=== PATIENT | female | born 1945 | race Two or more races ===

== ENCOUNTER 2021-06-02 08:44 | Outpatient (REF) | payer MEDICARE, MEDICAID, SELFPAY ==
[2021-06-02 11:38] LABS: Appearance Urine HAZY; Color Urine YELLOW; Glucose Urine UA NEG (NEG); Leukocyte Esterase Urine TRACE (NEG); Nitrite Urine POS (NEG); PH 5.5 (5.0-8.0); Specific Gravity - Urine 1.025 (1.005-1.025); Urine Blood NEG (NEG); Urine Ketones NEG (NEG); Urine Protein NEG (NEG-TRACE)
[2021-06-02 11:42] LABS: Hematocrit 37.4 % (37.0-47.0); Hemoglobin 11.9 g/dl (12.0-16.0); Mean Corpuscular HGB Conc 31.8 g/dl (31.0-35.0); Mean Corpuscular Hemoglobin 28.2 pg (27.0-33.0); Mean Corpuscular Volume 88.6 fL (80.0-98.0); Mean Platelet Volume 10.8 fL (9.4-12.3); Platelet Count 206 X10*3/uL (160-400); Red Blood Count 4.22 X10*6/uL (4.20-5.50); Red Cell Distribution Width 13.2 % (11.0-16.0); White Blood Count 4.2 X10*3/uL (4.8-10.8)
[2021-06-02 11:45] LABS: Estimated Average Glucose 140 mg/dL; Hemoglobin A1C 151.0093 umol/L; Hemoglobin A1c % 6.5 %
[2021-06-02 12:05] LABS: Bacteria Urine 1+ /LPF; Mucus Urine 2+ /LPF; RBC Urine 0 /HPF (0); Squamous Epithelial Cell Urine 2+ /LPF
[2021-06-02 12:09] LABS: Alanine Aminotransferase 10 U/L (0-31); Albumin Level 3.5 g/dL (3.5-5.0); Alkaline Phosphatase 63 U/L (39-117); Anion Gap 10 (12-20); Aspartate Amino Transferase 13 U/L (5-31); Bilirubin Total 0.4 mg/dL (0.0-1.0); Blood Urea Nitrogen 22 mg/dL (9-16); Calcium 9.1 mg/dL (8.4-10.2); Carbon Dioxide 27 mmol/L (22-29); Chloride 110 mmol/L (96-108); Cholesterol 150 mg/dL; Estimated Glomerular Filt Rate > 60; Glucose Fasting 101 mg/dL (60-99); HDL Cholesterol 38 mg/dL; LDL Cholesterol Calculated 99 mg/dl; Potassium 4.6 mmol/L (3.3-5.1); Sodium 142 mmol/L (135-145); Total Protein 7.2 g/dL (6.5-8.0); Triglycerides 65 mg/dL
[2021-06-02 12:13] LABS: TSH reflex Free T4 4.04 uIU/mL (0.32-4.0)
[2021-06-02 12:35] LABS: Creatinine Urine 105.33 mg/dL; Microalbum/Creatinine Ratio Ur 7.5 ug/mg cr
[2021-06-02 13:17] LABS: Free T4 (Free Thyroxine) 0.64 ng/dL (0.71-1.85)
== END 2021-06-02 08:45 | disposition home or self-care (01) ==
LOC: HO.HMGCLDS 08:44
PROVIDERS: PCP Internal Medicine; Visit Provider Internal Medicine
DX: E11.9 Type 2 diabetes mellitus without complications (principal); I10 Essential (primary) hypertension
CPT/HCPCS: 36415; 80053; 80061; 81001; 82043; 83036; 84439; 84443; 85027

== ENCOUNTER 2021-06-11 13:11 | Outpatient (REF) | payer MEDICARE, MEDICAID, SELFPAY ==
[2021-06-11 14:09] LABS: Appearance Urine HAZY; Color Urine YELLOW; Glucose Urine UA NEG (NEG); Leukocyte Esterase Urine 1+ (NEG); Nitrite Urine NEG (NEG); PH 5.5 (5.0-8.0); Specific Gravity - Urine 1.025 (1.005-1.025); Urine Blood NEG (NEG); Urine Ketones NEG (NEG); Urine Protein NEG (NEG-TRACE)
[2021-06-11 14:29] LABS: Bacteria Urine TRACE /LPF; Squamous Epithelial Cell Urine 2+ /LPF
== END 2021-06-11 13:12 | disposition home or self-care (01) ==
LOC: HO.HMGCLDS 13:11
PROVIDERS: Visit Provider Internal Medicine
DX: R82.71 Bacteriuria (principal)
CPT/HCPCS: 81001; 87086

== ENCOUNTER 2021-09-29 11:55 | Outpatient (REF) | payer MEDICARE, MEDICAID, SELFPAY ==
[2021-09-29 14:48] LABS: TSH reflex Free T4 3.27 uIU/mL (0.32-4.0)
== END 2021-09-29 11:56 | disposition home or self-care (01) ==
LOC: HO.HMGCLDS 11:55
PROVIDERS: PCP Internal Medicine; Visit Provider Internal Medicine
DX: E03.9 Hypothyroidism, unspecified (principal); R82.71 Bacteriuria
CPT/HCPCS: 36415; 84443

== ENCOUNTER 2021-11-06 09:21 | Outpatient (REF) | payer MEDICARE, MEDICAID, SELFPAY ==
[2021-11-06 11:13] LABS: MANUAL DIFF FLAG NO
[2021-11-06 11:22] LABS: Basophils Percent Auto 0.5 % (0-2); Eosinophils Absolute Auto 0.3 X10*3/uL (0.0-0.4); Eosinophils Percent Auto 6.5 % (0-4); Hematocrit 39.9 % (37.0-47.0); Hemoglobin 12.7 g/dl (12.0-16.0); Imm Gran Abs Auto 0.01 X10*3/uL (0.00-0.03); Imm Gran Pct Auto 0.3 % (0.0-0.4); Lymphocytes Absolute Auto 1.3 X10*3/uL (1.2-4.9); Lymphocytes Percent Auto 33.5 % (20-40); Mean Corpuscular HGB Conc 31.8 g/dl (31.0-35.0); Mean Corpuscular Hemoglobin 27.5 pg (27.0-33.0); Mean Corpuscular Volume 86.4 fL (80.0-98.0); Mean Platelet Volume 10.4 fL (9.4-12.3); Monocytes Absolute Auto 0.4 X10*3/uL (0.1-1.2); Monocytes Percent Auto 8.8 % (2-11); Neutrophils Percent Auto 50.4 % (45-73); Platelet Count 237 X10*3/uL (160-400); Red Blood Count 4.62 X10*6/uL (4.20-5.50); Red Cell Distribution Width 13.2 % (11.0-16.0)
[2021-11-06 11:30] LABS: Estimated Average Glucose 140 mg/dL; Hemoglobin A1c % 6.5 %
[2021-11-06 11:34] LABS: Alanine Aminotransferase 14 U/L (0-31); Albumin Level 3.9 g/dL (3.5-5.0); Alkaline Phosphatase 64 U/L (39-117); Anion Gap 15 (12-20); Aspartate Amino Transferase 15 U/L (5-31); Bilirubin Total 0.5 mg/dL (0.0-1.0); Blood Urea Nitrogen 22 mg/dL (9-16); Calcium 9.5 mg/dL (8.4-10.2); Carbon Dioxide 26 mmol/L (22-29); Chloride 103 mmol/L (96-108); Cholesterol 173 mg/dL; Estimated Glomerular Filt Rate 52; Glucose Fasting 105 mg/dL (60-99); HDL Cholesterol 39 mg/dL; LDL Cholesterol Calculated 119 mg/dl; Potassium 4.9 mmol/L (3.3-5.1); Sodium 139 mmol/L (135-145); Total Protein 7.6 g/dL (6.5-8.0); Triglycerides 76 mg/dL
[2021-11-06 11:58] LABS: TSH reflex Free T4 4.39 uIU/mL (0.32-4.0)
[2021-11-06 11:59] LABS: Creatinine Urine 137.01 mg/dL; Microalbum/Creatinine Ratio Ur 13.8 ug/mg cr
[2021-11-06 12:37] LABS: Free T4 (Free Thyroxine) 0.63 ng/dL (0.71-1.85)
== END 2021-11-06 09:22 | disposition home or self-care (01) ==
LOC: HO.HMGCLDS 09:21
PROVIDERS: PCP Internal Medicine; Visit Provider Internal Medicine
DX: E11.9 Type 2 diabetes mellitus without complications (principal); I10 Essential (primary) hypertension; E03.9 Hypothyroidism, unspecified
CPT/HCPCS: 36415; 80053; 80061; 82043; 83036; 84439; 84443; 85025

== ENCOUNTER 2022-01-11 14:21 | Outpatient (REF) | payer MEDICARE, MEDICAID, SELFPAY ==
[2022-01-11 16:50] LABS: TSH reflex Free T4 0.44 uIU/mL (0.32-4.0)
== END 2022-01-11 14:22 | disposition home or self-care (01) ==
LOC: HO.HMGCLDS 14:21
PROVIDERS: PCP Internal Medicine; Visit Provider Internal Medicine
DX: E03.9 Hypothyroidism, unspecified (principal)
CPT/HCPCS: 36415; 84443

== ENCOUNTER 2022-03-24 14:36 | Emergency (ER) | payer MEDICARE, OTHER, SELFPAY ==
--- NOTE | ~2022-03-24 | XR_ITS ---
EXAMINATION: XR CHEST CLINICAL INFORMATION: Shortness of breath COMPARISON: None TECHNIQUE: Frontal view of the chest was obtained. FINDINGS: No significant abnormality is noted involving the heart, lungs, mediastinum, bony thorax or soft tissues. Degenerative changes of the spine. XR/XR chest 1V IMPRESSION: Unremarkable examination.
--- NOTE | 2022-03-24 14:42 | ECG_ITS ---
Test Reason : AFIB Blood Pressure : / mmHG Vent. Rate : 099 BPM Atrial Rate : 000 BPM P-R Int : 000 ms QRS Dur : 084 ms QT Int : 362 ms P-R-T Axes : 000 -21 -12 degrees QTc Int : 464 ms Atrial fibrillation Nonspecific T wave abnormality Abnormal ECG No previous ECGs available Referred By: Anna Monroy Electronically Signed By:FIDENCIO SALTER MD
[2022-03-24 14:50] VITALS: BP 109/68; PULSE 96; RESP 22; TEMP 36.9; BMI 37.0
[2022-03-24 15:18] LABS: MANUAL DIFF FLAG NO
[2022-03-24 15:19] VITALS: PULSE 104; RESP 14; O2SAT 94
[2022-03-24 15:19] LABS: Basophils Percent Auto 0.5 % (0-2); Eosinophils Absolute Auto 0.9 X10*3/uL (0.0-0.4); Eosinophils Percent Auto 14.5 % (0-4); Hematocrit 40.8 % (37.0-47.0); Hemoglobin 13.1 g/dl (12.0-16.0); Imm Gran Abs Auto 0.01 X10*3/uL (0.00-0.03); Imm Gran Pct Auto 0.2 % (0.0-0.4); Lymphocytes Absolute Auto 1.5 X10*3/uL (1.2-4.9); Lymphocytes Percent Auto 25.5 % (20-40); Mean Corpuscular HGB Conc 32.1 g/dl (31.0-35.0); Mean Corpuscular Hemoglobin 27.6 pg (27.0-33.0); Mean Corpuscular Volume 86.1 fL (80.0-98.0); Mean Platelet Volume 9.7 fL (9.4-12.3); Monocytes Absolute Auto 0.6 X10*3/uL (0.1-1.2); Monocytes Percent Auto 9.3 % (2-11); Platelet Count 194 X10*3/uL (160-400); Red Blood Count 4.74 X10*6/uL (4.20-5.50); Red Cell Distribution Width 13.8 % (11.0-16.0); White Blood Count 6.1 X10*3/uL (4.8-10.8)
--- NOTE | 2022-03-24 15:21 | PC.NURSE ---
Alert and oriented, respirations even and unlabored. Recent pneumonia, finished taking antibiotics with little to no relief. Followed up with PCP today, ekg shows new afib. Pt on director of cardiac rehabilitation showing afib in the 90's and 100's. Pt denies any chest pain. IV established, labs drawn and sent. Pt northern irish speaking, family at bedside assisting with interpretation.
[2022-03-24 15:25] LABS: INTERNATIONAL NORM RATIO 1.1 (0.9-1.1); Prothrombin Time 12.7 SEC (10.0-13.1)
[2022-03-24 15:42] LABS: B Type Natriuretic Peptide 98 pg/mL (<100)
[2022-03-24 15:43] LABS: Alanine Aminotransferase 12 U/L (0-31); Albumin Level 3.8 g/dL (3.5-5.0); Alkaline Phosphatase 70 U/L (39-117); Anion Gap 13 (12-20); Aspartate Amino Transferase 20 U/L (5-31); Bilirubin Total 0.3 mg/dL (0.0-1.0); Blood Urea Nitrogen 21 mg/dL (9-16); COVID-19 Test Negative (Negative); Calcium 9.3 mg/dL (8.4-10.2); Carbon Dioxide 25 mmol/L (22-29); Chloride 106 mmol/L (96-108); Creatinine Clr Calc Pharmacy 64.7; Estimated Glomerular Filt Rate > 60; Glucose Random 74 mg/dL (60-115); IDNOW Serial# 16C4AD1C; IDNOW Serial# 9DB6401D; Influenza A Negative (Negative); Influenza B2 Negative (Negative); Potassium 4.3 mmol/L (3.3-5.1); Sodium 140 mmol/L (135-145); Total Protein 7.5 g/dL (6.5-8.0)
--- NOTE | 2022-03-24 15:43 | ED_ITS ---
HPI - Arrhythmia/Palpitations General Chief Complaint: Arrhythmia/Palpitations <JUDIE Galarza - Last Filed: 03/24/22 18:33> Stated Complaint: sent by doctor, SOB, Afib <JUDIE Galarza - Last Filed: 03/24/22 18:33> Time Seen by Provider: 03/24/22 14:42 <JUDIE Galarza - Last Filed: 03/24/22 18:33> Source: patient <JUDIE Galarza - Last Filed: 03/24/22 18:33> Mode of arrival: ambulatory <JUDIE Galarza - Last Filed: 03/24/22 18:33> History of Present Illness HPI narrative: 76-year-old female with a past medical history of diabetes, hypertension, hypothyroid, recent pneumonia treated with antibiotics outpatient presenting to the ED sent in by PCP for new onset AFib. Patient presented for follow-up appointment complaining of continued dyspnea, productive cough and wheeze when noted to be in AFib on EKG in the office. Patient reports SOB. denies CP, pedal edema, history of clots, recent travel, sick contacts, abdominal pain, nausea/vomiting. <JUDIE Galarza - Last Filed: 03/24/22 18:33> MD complaint: atrial fibrillation <JUDIE Galarza - Last Filed: 03/24/22 18:33> Onset (ago): unknown <JUDIE Galarza - Last Filed: 03/24/22 18:33> Related Data Home Medications: Previous Rx's Medication Instructions Recorded amlodipine 5 mg tablet 5 mg PO DAILY #90 tabs 06/01/21 glipizide 5 mg tablet 2.5 mg PO DAILY #90 tabs 06/01/21 lisinopril 10 mg tablet 10 mg PO DAILY #90 tabs 06/01/21 albuterol sulfate 90 mcg/actuation 2 puff inhalation Q6H PRN 11/02/21 aerosol inhaler shortness of breath or wheezing #8.5 grams levothyroxine 50 mcg tablet 50 mcg PO DAILY #90 tabs 11/10/21 apixaban 5 mg tablet (Eliquis) 5 mg PO BID 30 days #60 tabs 03/24/22 diltiazem HCl 120 mg 120 mg PO DAILY #30 caps 03/24/22 capsule,extended release 24 hr (Cardizem CD) levalbuterol tartrate 45 2 puff inhalation Q4-6H PRN 03/24/22 mcg/actuation aerosol inhaler shortness of breath or wheezing (Xopenex HFA) #15 grams prednisone 20 mg tablet 40 mg PO DAILY 5 days #10 tabs 03/24/22 <JUDIE Galarza Last Filed: 03/24/22 18:33> Allergies/Adverse Reactions: Allergies Allergy/AdvReac Type Severity Reaction Status Date / Time No Known Allergies Allergy Verified 03/24/22 12:51 <JUDIE Galarza Last Filed: 03/24/22 18:33> Review of Systems Review of Systems: Constitutional: No Fever, No Chills, No Fatigue, No Malaise ENT/Mouth: No Ear Pain, No Nasal Congestion, No Sinus Pain, No Hoarseness, No sore throat, No Rhinorrhea, No Swallowing Difficulty Eyes: No Eye Pain, No Swelling, No Redness, No Vision Changes Cardiovascular: No Chest Pain, + SOB, + Dyspnea on Exertion, No Orthopnea, No Edema, No Palpitations Respiratory: + Cough, No Sputum, + Wheezing, No Dyspnea Gastrointestinal: No Nausea, No Vomiting, No Diarrhea, No Constipation, No Abdominal pain, No Hematochezia, No Melena Genitourinary: No Dysuria, No Urinary Frequency, No Hematuria, No Flank Pain, No Urinary Flow Changes, No Hesitancy Musculoskeletal: No joint pain, No Myalgias, No Joint Swelling Skin: No Skin Lesions, No rash Neuro: No Weakness, No Numbness, No Dizziness, No Headache <JUDIE Galarza Last Filed: 03/24/22 18:33> Yes all other systems are reviewed and are negative <JUDIE Galarza Last Filed: 03/24/22 18:33> Constitutional: Constitutional: Reports as per HPI <JUDIE Galarza Last Filed: 03/24/22 18:33> PMFSH Past Medical History Attestation statement: The following information was validated with the patient. <JUDIE Galarza Last Filed: 03/24/22 18:33> Medical History: Medical History Bacteriuria Colonoscopy refused DM type 2 (diabetes mellitus, type 2) HTN (hypertension) Hypothyroidism Mammogram declined <JUDIE Galarza - Last Filed: 03/24/22 18:33> Social History Social History: Social History Housing: House Patient Tobacco Use Status: Never used Tobacco e-Cigarette/Vaping Use: Never Used Advance Directives: No Advance Directives Information Provided: No Current occupational status: retired Cognitive needs: No Hearing needs: No Vision needs: Yes <JUDIE Galarza - Last Filed: 03/24/22 18:33> Physical Exam Vital Signs: Vital Signs: Last Vital Signs Temp 97.8 F 03/24/22 18:43 Pulse 90 03/24/22 18:43 Resp 16 03/24/22 18:43 BP 141/81 H 03/24/22 18:43 Pulse Ox 94 03/24/22 18:43 O2 Del Method 03/24/22 18:43 BMI result Body Mass Index 37.0 <JUDIE Galarza - Last Filed: 03/24/22 18:33> Vital Signs: Last Vital Signs Temp 97.8 F 03/24/22 18:43 Pulse 90 03/24/22 18:43 Resp 16 03/24/22 18:43 BP 141/81 H 03/24/22 18:43 Pulse Ox 94 03/24/22 18:43 O2 Del Method 03/24/22 18:43 BMI result Body Mass Index 37.0 <JUDIE Valente - Last Filed: 03/24/22 19:30> Const: General: cooperative, healthy appearing and no acute distress <JUDIE Galarza - Last Filed: 03/24/22 18:33> Orientation/consciousness: patient oriented x3 <JUDIE Galarza - Last Filed: 03/24/22 18:33> Limitations: no limitations <JUIDE Galarza Last Filed: 03/24/22 18:33> HEENT: Head: Yes normal to inspection and Yes atraumatic <JUDIE Galarza - Last Filed: 03/24/22 18:33> Ears: hearing grossly normal bilaterally <Celina Lucigeorget PA - Last Filed: 03/24/22 18:33> General nose exam: Normal external nose present <Celina Montañot PA - Last Fi led: 03/24/22 18:33> Face and sinus: Yes normal facial exam <Celina Santos PA - Last Filed: 03/24/22 18:33> Eyes: General: appearance normal, both eyes and all related structures <Celina Montañot PA - Last Filed: 03/24/22 18:33> EOM: EOMs intact bilaterally <Celina Poulgeorget PA - Last Filed: 03/24/22 18:33> Neck: Neck: Yes normal visual inspection and Yes no meningeal signs <Celina Montañot PA - Last Filed: 03/24/22 18:33> Resp: Effort & Inspection: normal respiratory effort and no respiratory distress <Celina Santos PA - Last Filed: 03/24/22 18:33> Auscultation: wheezes expiratory wheezes and throughout <Celina Lucigeorget PA - Last Filed: 03/24/22 18:33> Cardio: Rate: regular rate <Celina Poulcarl PA - Last Filed: 03/24/22 18:33> Heart sounds: S1 normal heart sound present and S2 normal heart sound present <Celina Santos PA - Last Filed: 03/24/22 18:33> GI: Inspection: Yes normal to inspection <Celina Santos PA - Last Filed: 03/24/22 18:33> Palpation (GI): Soft to palpation, nontender, no guarding and not rigid <Celina Poulgeorget PA - Last Filed: 03/24/22 18:33> Skin: Rashes: no rashes <Celina Poulgeorget PA - Last Filed: 03/24/22 18:33> Wounds: no wounds <Celina Poulcarl PA - Last Filed: 03/24/22 18:33> Neuro: General: patient oriented x3, tone normal and no meningeal signs <Celina Santos PA - Last Filed: 03/24/22 18:33> Gait exam (Neuro): Normal gait present <JUDIE Galarza - Last Filed: 03/24/22 18:33> Extrem: General: Yes normal to inspection and Yes no pedal edema <JUDIE Hoffmann - Last Filed: 03/24/22 18:33> Course Course Course Narrative: -1739--case discussed with Dr. Mazariegos, cardiology, recommended discharging patient home on Eliquis, 120 or 180 mg daily of Cardizem & switching inhalers to Xopenex -no leukocytosis. Labs otherwise reassuring. Troponin negative. BNP 98. COVID-19 and influenza negative XR chest 1V IMPRESSION: Unremarkable examination. ? >> patient ambulated in the ED with pulse ox maintaining saturation of 93% on room air. -1809--on re-evaluation patient is still with diffuse expiratory wheeze. Additional Xopenex and IV Solu-Medrol ordered. -183--ED care transferred to JUDIE Fink pending re-evaluation. Heart rate now 83 after IV Cardizem <JUDIE Galarza - Last Filed: 03/24/22 18:33> Reevaluation(s) Reevaluation #1: Patient did ambulate around the department still saturating 93% on room air requesting to go home. I did offer hospital admission however patient refuses, she tells me she is not feeling short of breath would like to go home. I did discuss risk versus benefits of staying in the hospital versus going home, she verbalizes understanding, I answered all questions. They did not want an actual sewage screen operator, used for interpretation. Educated patient on diagnosis and treatment plan, answered all question, patient verbalizes understa nding. At this time patient will be discharged home, advised to return with new or worsening symptoms. Educated on worrisome signs and symptoms and when to return. At this time I feel comfortable discharge home. <JUDIE Valente - Last Filed: 03/24/22 19:30> Time: 19:30 <JUDIE Valente Last Filed: 03/24/22 19:30> Medications Administered Discontinued Medications Generic Name Dose Route Start Last Admin Trade Name Freq PRN Reason Stop Dose Admin Apixaban 5 mg 03/24/22 18:05 03/24/22 19:12 Apixaban 5 Mg Tablet PO 03/24/22 18:06 5 mg ONCE ONE Administration Diltiazem HCl 10 mg 03/24/22 17:36 03/24/22 18:03 Diltiazem Hcl 50 Mg/10 Ml Vial IVPUSH 03/24/22 17:37 10 mg STAT STA Administration Levalbuterol HCl 1.25 mg 03/24/22 18:03 03/24/22 18:14 Levalbuterol Hcl 1.25 Mg/0.5 Ml Vial.Neb INHALE 03/24/22 18:04 1.25 mg ONCE ONE Administration Levalbuterol HCl 1.25 mg 03/24/22 18:36 03/24/22 19:06 Levalbuterol Hcl 1.25 Mg/0.5 Ml Vial.Neb INHALE 03/24/22 18:37 Not Given ONCE ONE Methylprednisolone Sodium Succinate 60 mg 03/24/22 18:03 03/24/22 18:06 Methylprednisolone Sod Succ 125 Mg/2 Ml Vial IVPUSH 03/24/22 18:04 60 mg ONCE ONE Administration <JUDIE Galarza - Last Filed: 03/24/22 18:33> Medications Administered Discontinued Medications Generic Name Dose Route Start Last Admin Trade Name Freq PRN Reason Stop Dose Admin Apixaban 5 mg 03/24/22 18:05 03/24/22 19:12 Apixaban 5 Mg Tablet PO 03/24/22 18:06 5 mg ONCE ONE Administration Diltiazem HCl 10 mg 03/24/22 17:36 03/24/22 18:03 Diltiazem Hcl 50 Mg/10 Ml Vial IVPUSH 03/24/22 17:37 10 mg STAT STA Administration Levalbuterol HCl 1.25 mg 03/24/22 18:03 03/24/22 18:14 Levalbuterol Hcl 1.25 Mg/0.5 Ml Vial.Neb INHALE 03/24/22 18:04 1.25 mg ONCE ONE Administration Levalbuterol HCl 1.25 mg 03/24/22 18:36 03/24/22 19:06 Levalbuterol Hcl 1.25 Mg/0.5 Ml Vial.Neb INHALE 03/24/22 18:37 Not Given ONCE ONE Methylprednisolone Sodium Succinate 60 mg 03/24/22 18:03 03/24/22 18:06 Methylprednisolone Sod Succ 125 Mg/2 Ml Vial IVPUSH 03/24/22 18:04 60 mg ONCE ONE Administration <JUDIE Valente - Last Filed: 03/24/22 19:30> Medical Decision Making Medical Decision Making [facility] Narrative: 76-year-old female with a past medical history of diabetes, hypertension, hypothyroid, recent pneumonia treated with antibiotics outpatient presenting to the ED sent in by PCP for new onset AFib. On exam initially tachypneic, diffuse expiratory wheeze noted with coarse cough, no appreciable pedal edema/calf tenderness. No respiratory distress. EKG with AFib with RVR, new onset. Concern for AFib secondary to albuterol/medication vs new onset AFib vs recurrent pneumonia vs viral illness vs bronchitis. Low suspicion for ACS/PE Plan: EKG, labs, CXR, COVID-19/influenza testing, Xopenex, cardiology consult <JUDIE Galarza - Last Filed: 03/24/22 18:33> Differential Diagnosis Differential Diagnoses: The differential diagnosis associated with the presentation includes <JUDIE Galarza - Last Filed: 03/24/22 18:33> As above <JUDIE Galarza - Last Filed: 03/24/22 18:33> Consult Healthcare Provider Management of the patient was discussed with: Citizenship Teacher <JUDIE Galarza - Last Filed: 03/24/22 18:33> Lab Data [facility] Lab Attestation statement: I reviewed the patient's lab results. <JUDIE Galarza - Last Filed: 03/24/22 18:33> Result Diagrams: : 03/24/22 15:09 03/24/22 15:09 <JUDIE Galarza - Last Filed: 03/24/22 18:33> Labs: Lab Results 03/24/22 03/24/22 03/24/22 Range/Units 15:09 15:09 15:09 WBC 6.1 (4.8-10.8) X10*3/uL RBC 4.74 (4.20-5.50) X10*6/uL Hgb 13.1 (12.0-16.0) g/dl Hct 40.8 (37.0-47.0) % MCV 86.1 (80.0-98.0) fL MCH 27.6 (27.0-33.0) pg MCHC 32.1 (31.0-35.0) g/dl RDW 13.8 (11.0-16.0) % Plt Count 194 (160-400) X10*3/uL MPV 9.7 (9.4-12.3) fL Immature Gran % (Auto) 0.2 (0.0-0.4) % Neut % (Auto) 50.0 (45-73) % Lymph % (Auto) 25.5 (20-40) % [place] % (Auto) 9.3 (2-11) % Eos % (Auto) 14.5 H (0-4) % Baso % (Auto) 0.5 (0-2) % Lymph # (Auto) 1.5 (1.2-4.9) X10*3/uL [place] # (Auto) 0.6 (0.1-1.2) X10*3/uL Eos # (Auto) 0.9 H (0.0-0.4) X10*3/uL Baso # (Auto) 0.0 (0.0-0.2) X10*3/uL Abs Immat Gran (auto) 0.01 (0.00-0.03) X10*3/uL Absolute Neuts (auto) 3.0 (2.0-8.3) x10*3/uL Absolute Nucleated RBC 0.000 (0.0-0.012) X10*3/uL Nucleated RBC % (auto) 0.0 (0.0-0.2) /100WBC PT 12.7 (10.0-13.1) SEC INR 1.1 (0.9-1.1) Sodium 140 (135-145) mmol/L Potassium 4.3 (3.3-5.1) mmol/L Chloride 106 (96-108) mmol/L Carbon Dioxide 25 (22-29) mmol/L Anion Gap 13 (12-20) BUN 21 H (9-16) mg/dL Creatinine 0.87 (0.5-1.4) mg/dL Estim Creat Clear Calc 64.7 Estimated GFR > 60 Random Glucose 74 (60-115) mg/dL Calcium 9.3 (8.4-10.2) mg/dL Magnesium 1.9 (1.6-2.6) mg/dL Total Bilirubin 0.3 (0.0-1.0) mg/dL AST 20 (5-31) U/L ALT 12 (0-31) U/L Alkaline Phosphatase 70 (39-117) U/L Troponin I High Sens (<3.5-17.0) ng/L B-Natriuretic Peptide (<100) pg/mL Total Protein 7.5 (6.5-8.0) g/dL Albumin 3.8 (3.5-5.0) g/dL COVID-19 (GIULIA) (Negative) COVID-19 Clin Com Influenza Type A (TYRONE) (Negative) Influenza Type B (TYRONE) (Negative) Influenza A & B Note 03/24/22 03/24/22 03/24/22 Range/Units 15:09 15:09 15:09 WBC (4.8-10.8) X10*3/uL RBC (4.20-5.50) X10*6/uL Hgb (12.0-16.0) g/dl Hct (37.0-47.0) % MCV (80.0-98.0) fL MCH (27.0-33.0) pg MCHC (31.0-35.0) g/dl RDW (11.0-16.0) % Plt Count (160-400) X10*3/uL MPV (9.4-12.3) fL Immature Gran % (Auto) (0.0-0.4) % Neut % (Auto) (45-73) % Lymph % (Auto) (20-40) % [place] % (Auto) (2-11) % Eos % (Auto) (0-4) % Baso % (Auto) (0-2) % Lymph # (Auto) (1.2-4.9) X10*3/uL [place] # (Auto) (0.1-1.2) X10*3/uL Eos # (Auto) (0.0-0.4) X10*3/uL Baso # (Auto) (0.0-0.2) X10*3/uL Abs Immat Gran (auto) (0.00-0.03) X10*3/uL Absolute Neuts (auto) (2.0-8.3) x10*3/uL Absolute Nucleated RBC (0.0-0.012) X10*3/uL Nucleated RBC % (auto) (0.0-0.2) /100WBC PT (10.0-13.1) SEC INR (0.9-1.1) Sodium (135-145) mmol/L Potassium (3.3-5.1) mmol/L Chloride (96-108) mmol/L Carbon Dioxide (22-29) mmol/L Anion Gap (12-20) BUN (9-16) mg/dL Creatinine (0.5-1.4) mg/dL Estim Creat Clear Calc Estimated GFR Random Glucose (60-115) mg/dL Calcium (8.4-10.2) mg/dL Magnesium (1.6-2.6) mg/dL Total Bilirubin (0.0-1.0) mg/dL AST (5-31) U/L ALT (0-31) U/L Alkaline Phosphatase (39-117) U/L Troponin I High Sens < 3.5 (<3.5-17.0) ng/L B-Natriuretic Peptide 98 (<100) pg/mL Total Protein (6.5-8.0) g/dL Albumin (3.5-5.0) g/dL COVID-19 (GIULIA) (Negative) COVID-19 Clin Com Influenza Type A (TYRONE) Negative (Negative) Influenza Type B (TYRONE) Negative (Negative) Influenza A & B Note See Note 03/24/22 Range/Units 15:09 WBC (4.8-10.8) X10*3/uL RBC (4.20-5.50) X10*6/uL Hgb (12.0-16.0) g/dl Hct (37.0-47.0) % MCV (80.0-98.0) fL MCH (27.0-33.0) pg MCHC (31.0-35.0) g/dl RDW (11.0-16.0) % Plt Count (160-400) X10*3/uL MPV (9.4-12.3) fL Immature Gran % (Auto) (0.0-0.4) % Neut % (Auto) (45-73) % Lymph % (Auto) (20-40) % [place] % (Auto) (2-11) % Eos % (Auto) (0-4) % Baso % (Auto) (0-2) % Lymph # (Auto) (1.2-4.9) X10*3/uL [place] # (Auto) (0.1-1.2) X10*3/uL Eos # (Auto) (0.0-0.4) X10*3/uL Baso # (Auto) (0.0-0.2) X10*3/uL Abs Immat Gran (auto) (0.00-0.03) X10*3/uL Absolute Neuts (auto) (2.0-8.3) x10*3/uL Absolute Nucleated RBC (0.0-0.012) X10*3/uL Nucleated RBC % (auto) (0.0-0.2) /100WBC PT (10.0-13.1) SEC INR (0.9-1.1) Sodium (135-145) mmol/L Potassium (3.3-5.1) mmol/L Chloride (96-108) mmol/L Carbon Dioxide (22-29) mmol/L Anion Gap (12-20) BUN (9-16) mg/dL Creatinine (0.5-1.4) mg/dL Estim Creat Clear Calc Estimated GFR Random Glucose (60-115) mg/dL Calcium (8.4-10.2) mg/dL Magnesium (1.6-2.6) mg/dL Total Bilirubin (0.0-1.0) mg/dL AST (5-31) U/L ALT (0-31) U/L Alkaline Phosphatase (39-117) U/L Troponin I High Sens (<3.5-17.0) ng/L B-Natriuretic Peptide (<100) pg/mL Total Protein (6.5-8.0) g/dL Albumin (3.5-5.0) g/dL COVID-19 (GIULIA) Negative (Negative) COVID-19 Clin Com See Note Influenza Type A (TYRONE) (Negative) Influenza Type B (TYRONE) (Negative) Influenza A & B Note <JUDIE Galarza - Last Filed: 03/24/22 18:33> Lab Results 03/24/22 03/24/22 03/24/22 Range/Units 15:09 15:09 15:09 WBC 6.1 (4.8-10.8) X10*3/uL RBC 4.74 (4.20-5.50) X10*6/uL Hgb 13.1 (12.0-16.0) g/dl Hct 40.8 (37.0-47.0) % MCV 86.1 (80.0-98.0) fL MCH 27.6 (27.0-33.0) pg MCHC 32.1 (31.0-35.0) g/dl RDW 13.8 (11.0-16.0) % Plt Count 194 (160-400) X10*3/uL MPV 9.7 (9.4-12.3) fL Immature Gran % (Auto) 0.2 (0.0-0.4) % Neut % (Auto) 50.0 (45-73) % Lymph % (Auto) 25.5 (20-40) % [place] % (Auto) 9.3 (2-11) % Eos % (Auto) 14.5 H (0-4) % Baso % (Auto) 0.5 (0-2) % Lymph # (Auto) 1.5 (1.2-4.9) X10*3/uL [place] # (Auto) 0.6 (0.1-1.2) X10*3/uL Eos # (Auto) 0.9 H (0.0-0.4) X10*3/uL Baso # (Auto) 0.0 (0.0-0.2) X10*3/uL Abs Immat Gran (auto) 0.01 (0.00-0.03) X10*3/uL Absolute Neuts (auto) 3.0 (2.0-8.3) x10*3/uL Absolute Nucleated RBC 0.000 (0.0-0.012) X10*3/uL Nucleated RBC % (auto) 0.0 (0.0-0.2) /100WBC PT 12.7 (10.0-13.1) SEC INR 1.1 (0.9-1.1) Sodium 140 (135-145) mmol/L Potassium 4.3 (3.3-5.1) mmol/L Chloride 106 (96-108) mmol/L Carbon Dioxide 25 (22-29) mmol/L Anion Gap 13 (12-20) BUN 21 H (9-16) mg/dL Creatinine 0.87 (0.5-1.4) mg/dL Estim Creat Clear Calc 64.7 Estimated GFR > 60 Random Glucose 74 (60-115) mg/dL Calcium 9.3 (8.4-10.2) mg/dL Magnesium 1.9 (1.6-2.6) mg/dL Total Bilirubin 0.3 (0.0-1.0) mg/dL AST 20 (5-31) U/L ALT 12 (0-31) U/L Alkaline Phosphatase 70 (39-117) U/L Troponin I High Sens (<3.5-17.0) ng/L B-Natriuretic Peptide (<100) pg/mL Total Protein 7.5 (6.5-8.0) g/dL Albumin 3.8 (3.5-5.0) g/dL COVID-19 (GIULIA) (Negative) COVID-19 Clin Com Influenza Type A (TYRONE) (Negative) Influenza Type B (TYRONE) (Negative) Influenza A & B Note 03/24/22 03/24/22 03/24/22 Range/Units 15:09 15:09 15:09 WBC (4.8-10.8) X10*3/uL RBC (4.20-5.50) X10*6/uL Hgb (12.0-16.0) g/dl Hct (37.0-47.0) % MCV (80.0-98.0) fL MCH (27.0-33.0) pg MCHC (31.0-35.0) g/dl RDW (11.0-16.0) % Plt Count (160-400) X10*3/uL MPV (9.4-12.3) fL Immature Gran % (Auto) (0.0-0.4) % Neut % (Auto) (45-73) % Lymph % (Auto) (20-40) % [place] % (Auto) (2-11) % Eos % (Auto) (0-4) % Baso % (Auto) (0-2) % Lymph # (Auto) (1.2-4.9) X10*3/uL [place] # (Auto) (0.1-1.2) X10*3/uL Eos # (Auto) (0.0-0.4) X10*3/uL Baso # (Auto) (0.0-0.2) X10*3/uL Abs Immat Gran (auto) (0.00-0.03) X10*3/uL Absolute Neuts (auto) (2.0-8.3) x10*3/uL Absolute Nucleated RBC (0.0-0.012) X10*3/uL Nucleated RBC % (auto) (0.0-0.2) /100WBC PT (10.0-13.1) SEC INR (0.9-1.1) Sodium (135-145) mmol/L Potassium (3.3-5.1) mmol/L Chloride (96-108) mmol/L Carbon Dioxide (22-29) mmol/L Anion Gap (12-20) BUN (9-16) mg/dL Creatinine (0.5-1.4) mg/dL Estim Creat Clear Calc Estimated GFR Random Glucose (60-115) mg/dL Calcium (8.4-10.2) mg/dL Magnesium (1.6-2.6) mg/dL Total Bilirubin (0.0-1.0) mg/dL AST (5-31) U/L ALT (0-31) U/L Alkaline Phosphatase (39-117) U/L Troponin I High Sens < 3.5 (<3.5-17.0) ng/L B-Natriuretic Peptide 98 (<100) pg/mL Total Protein (6.5-8.0) g/dL Albumin (3.5-5.0) g/dL COVID-19 (GIULIA) (Negative) COVID-19 Clin Com Influenza Type A (TYRONE) Negative (Negative) Influenza Type B (TYRONE) Negative (Negative) Influenza A & B Note See Note 03/24/22 Range/Units 15:09 WBC (4.8-10.8) X10*3/uL RBC (4.20-5.50) X10*6/uL Hgb (12.0-16.0) g/dl Hct (37.0-47.0) % MCV (80.0-98.0) fL MCH (27.0-33.0) pg MCHC (31.0-35.0) g/dl RDW (11.0-16.0) % Plt Count (160-400) X10*3/uL MPV (9.4-12.3) fL Immature Gran % (Auto) (0.0-0.4) % Neut % (Auto) (45-73) % Lymph % (Auto) (20-40) % [place] % (Auto) (2-11) % Eos % (Auto) (0-4) % Baso % (Auto) (0-2) % Lymph # (Auto) (1.2-4.9) X10*3/uL [place] # (Auto) (0.1-1.2) X10*3/uL Eos # (Auto) (0.0-0.4) X10*3/uL Baso # (Auto) (0.0-0.2) X10*3/uL Abs Immat Gran (auto) (0.00-0.03) X10*3/uL Absolute Neuts (auto) (2.0-8.3) x10*3/uL Absolute Nucleated RBC (0.0-0.012) X10*3/uL Nucleated RBC % (auto) (0.0-0.2) /100WBC PT (10.0-13.1) SEC INR (0.9-1.1) Sodium (135-145) mmol/L Potassium (3.3-5.1) mmol/L Chloride (96-108) mmol/L Carbon Dioxide (22-29) mmol/L Anion Gap (12-20) BUN (9-16) mg/dL Creatinine (0.5-1.4) mg/dL Estim Creat Clear Calc Estimated GFR Random Glucose (60-115) mg/dL Calcium (8.4-10.2) mg/dL Magnesium (1.6-2.6) mg/dL Total Bilirubin (0.0-1.0) mg/dL AST (5-31) U/L ALT (0-31) U/L Alkaline Phosphatase (39-117) U/L Troponin I High Sens (<3.5-17.0) ng/L B-Natriuretic Peptide (<100) pg/mL Total Protein (6.5-8.0) g/dL Albumin (3.5-5.0) g/dL COVID-19 (GIULIA) Negative (Negative) COVID-19 Clin Com See Note Influenza Type A (TYRONE) (Negative) Influenza Type B (TYRONE) (Negative) Influenza A & B Note <JUDIE Valente - Last Filed: 03/24/22 19:30> Independent Interpretation I performed an independent interpretation of an: EKG <JUDIE Galarza - Last Filed: 03/24/22 18:33> Interpretation: EKG AFib at a rate of 99. QTC 464. No STEMI. <JUDIE Galarza - Last Filed: 03/24/22 18:33> Critical Care Time Critical Care Time Critical Care Time: No <JUDIE Valente - Last Filed: 03/24/22 19:30> Discharge Plan Discharge Clinical Impression: New onset a-fib, Bronchitis <JUDIE Galarza - Last Filed: 03/24/22 18:33> Patient Disposition: Still a Patient <JUDIE Galarza - Last Filed: 03/24/22 18:33> Instructions: A-fib (Atrial Fibrillation) (DC), Acute Bronchitis (ED) <JUDIE Galarza - Last Filed: 03/24/22 18:33> Additional Instructions: You have a new abnormal heart rate called atrial fibrillation, this puts you at risk of stroke and heart attack. Eliquis is a blood thinner, please take as prescribed. If you fall or hit her head or have abnormal bleeding return to the ED immediately. Cardizem as rate control medication to control your heart rate. Levalbuterol is an inhaler to help with her wheezing. Prednisone as steroid that will also help. Her blood work otherwise looked reassuring and her x-ray did not show pneumonia You need to close follow-up with Cardiology, call tomorrow to make an appointment. Also follow up with her primary care doctor. If symptoms persist or worsen, if constant worsening shortness of breath, chest pain, or swelling in her legs return to ED <JUDIE Galarza - Last Filed: 03/24/22 18:33> Prescriptions: New Eliquis 5 mg tablet 5 mg PO BID 30 Days Qty: 60 0RF levalbuterol tartrate [Xopenex HFA] 45 mcg/actuation HFA aerosol inhaler 2 puff inhalation Q4-6H PRN (Reason: shortness of breath or wheezing) Qty: 15 0RF diltiazem HCl [Cardizem CD] 120 mg capsule,extended release 24hr 120 mg PO DAILY Qty: 30 0RF prednisone 20 mg tablet 40 mg PO DAILY 5 Days Qty: 10 0RF No Action levothyroxine 50 mcg tablet 50 mcg PO DAILY Qty: 90 1RF amlodipine 5 mg tablet 5 mg PO DAILY Qty: 90 3RF glipizide 5 mg tablet 2.5 mg PO DAILY Qty: 90 3RF lisinopril 10 mg tablet 10 mg PO DAILY Qty: 90 3RF albuterol sulfate 90 mcg/actuation HFA aerosol inhaler 2 puff inhalation Q6H PRN (Reason: shortness of breath or wheezing) Qty: 8.5 3RF <JUDIE Galarza - Last Filed: 03/24/22 18:33> Ref[place]: [facility] [place] Group] - 3 days Irene Martin MD [Primary Care Provider] - 2 days <JUDIE Galarza - Last Filed: 03/24/22 18:33>
[2022-03-24 15:51] LABS: Troponin-I High Sensitivity < 3.5 ng/L (<3.5-17.0)
[2022-03-24 16:05] LABS: Magnesium 1.9 mg/dL (1.6-2.6)
[2022-03-24 17:08] VITALS: BP 146/91; PULSE 101; RESP 12; TEMP 36.7; O2SAT 93
[2022-03-24 17:52] VITALS: O2SAT 93
[2022-03-24] MEDS: dilTIAZem HCL 50 MG/10 ML VIAL 10 MG IVPUSH (18:03)
[2022-03-24] MEDS: methylPREDNISolone Sod Succ 125 MG/2 ML VIAL 60 MG IVPUSH (18:06)
[2022-03-24 18:14] VITALS: PULSE 83; RESP 18; O2SAT 95
[2022-03-24 18:43] VITALS: BP 141/81; PULSE 90; RESP 16; TEMP 36.6; O2SAT 94
[2022-03-24] MEDS: Apixaban 5 MG TABLET PO (19:12)
== END 2022-03-24 19:40 | disposition still patient (30) ==
PROVIDERS: Physician Assistant; Emergency Provider Student in an Organized Health Care Education/Training Program; PCP Internal Medicine
DX: J40 Bronchitis, not specified as acute or chronic (principal); I48.91 Unspecified atrial fibrillation; R06.02 Shortness of breath; I49.9 Cardiac arrhythmia, unspecified; I10 Essential (primary) hypertension; Z20.822 Contact with and (suspected) exposure to COVID-19; Z79.899 Other long term (current) drug therapy
CPT/HCPCS: 71045; 80053; 83735; 83880; 84484; 85025; 85610; 87502; 87635; 93005; 94640; 96374; 96375; 99284; 99285; J2930

== ENCOUNTER → 2022-04-09 11:51 | Outpatient (BNVA) | payer MEDICARE, OTHER, SELFPAY | PROVIDERS: PCP Internal Medicine; Visit Provider Internal Medicine Cardiovascular Disease | DX: I48.19 Other persistent atrial fibrillation (principal) | CPT/HCPCS: 93005; 99202 ==

== ENCOUNTER 2022-04-19 09:24 | Outpatient (REF) | payer MEDICARE, MEDICAID, SELFPAY ==
[2022-04-19 13:28] LABS: Alanine Aminotransferase 9 U/L (0-31); Albumin Level 3.6 g/dL (3.5-5.0); Alkaline Phosphatase 61 U/L (39-117); Anion Gap 13 (12-20); Aspartate Amino Transferase 14 U/L (5-31); Bilirubin Total 0.4 mg/dL (0.0-1.0); Blood Urea Nitrogen 20 mg/dL (9-16); Calcium 9.1 mg/dL (8.4-10.2); Carbon Dioxide 26 mmol/L (22-29); Chloride 107 mmol/L (96-108); Estimated Glomerular Filt Rate > 60; Glucose Fasting 114 mg/dL (60-99); Sodium 141 mmol/L (135-145); Total Protein 6.7 g/dL (6.5-8.0)
[2022-04-19 13:31] LABS: TSH reflex Free T4 2.34 uIU/mL (0.32-4.0)
[2022-04-19 13:59] LABS: Estimated Average Glucose 157 mg/dL; Hemoglobin A1c % 7.1 %
== END 2022-04-19 09:25 | disposition home or self-care (01) ==
LOC: HO.HMGCLDS 09:24
PROVIDERS: PCP Internal Medicine; Visit Provider Internal Medicine
DX: E03.9 Hypothyroidism, unspecified (principal); E11.9 Type 2 diabetes mellitus without complications; I10 Essential (primary) hypertension
CPT/HCPCS: 36415; 80053; 83036; 84443

== ENCOUNTER → 2022-04-23 09:55 | Outpatient (REF) | payer MEDICARE, OTHER, SELFPAY ==
--- NOTE | 2022-04-23 09:59 | HM_ITS ---
* Total monitoring time 3 days. * Underlying rhythm is atrial fibrillation. Average ventricular rate 85/Min. Range 53 to 143/Min. * About 2.6% the time, rate greater than 100/Min. Overall, reasonable rate control. * No significant pauses or AV blocks. * No patient diary. MTDD
--- NOTE | 2022-04-23 09:59 | CA_ITS ---
Transthoracic Echocardiogram Patient (Last, First, Middle): Anayeli Ortiz, Gender: Female Date of : 1945 Age: 76 Procedure Date: 04/23/2022 Procedure Type: Transthoracic Echocardiogram Location: OP Height: 162.56 cm Weight: 108.86 kg BSA: 2.11 m2 Heart Rate: bpm BP: 128 / 76 mmHg Plant Anatomy Teacher: ADALI Referring MD: Zoran Mazariegos MD Symptoms: I48.19 - Other persistent atrial fibrillation Study Quality: Technically Difficult but adequate study ECG Rhythm: Atrial Fibrillation Conclusions: - The left ventricular systolic function is mildly decreased. The calculated ejection fraction is 51% by biplane method. - There is mildly decreased right ventricular systolic function. - No obvious valvular pathology seen on this study. Findings Left Ventricle Normal left ventricular cavity size. There is mildly increased left ventricular wall thickness. The left ventricular systolic function is mildly decreased. The calculated ejection fraction is 51% by biplane method. There is no evidence of regional wall motion abnormalities. Diastolic function is indeterminate on the basis of available data. Right Ventricle Normal right ventricular cavity size. There is mildly decreased right ventricular systolic function. Atria Both atria are normal in size. Aortic Valve The aortic valve was not well visualized. There is no aortic valve stenosis. There is no aortic valve regurgitation. Mitral Valve The mitral valve appears normal. There is no mitral valve regurgitation. There is no mitral valve stenosis. Pulmonic Valve The pulmonic valve is likely normal. Tricuspid Valve There is trace tricuspid valve regurgitation. There is no evidence of pulmonary hypertension. Great Vessels The asc aorta is normal in size. Venous The inferior vena cava is normal in size and collapses less than 50% with inspiration. Pericardium/Pleural There is no evidence of pericardial effusion. Prior Study Comparison No prior study available for comparison. Recommendations, Care & Conclusions No obvious valvular pathology seen on this study. Measurements 2D Linear Measurements IVSd: 1.01 0.6-0.9/0.6-1.0 cm LVIDd: 5.22 3.9-5.3/4.2-5.9 cm LVIDd Index: 2.47 2.4-3.2/2.2-3.1 cm/m2 LVIDs: 4.01 2.0-3.6 cm LVPWd: 1.02 0.7-1.1 cm LA Diam: 4.00 2.7-3.8/3.0-4.0 cm LAIDs Index: 1.90 1.5-2.3 cm/m2 LV Mass: 248.40 67-162/88-224 g LV Mass Index: 117.72 43-95/49-115 g/m2 LVOT Diam: 2.00 3.0+(-)1.3 cm 2D Systolic Function EF 4C: 57.30 >55% EF 2C: 43.90 >55% EF BiP: 51.40 >55% Mitral Valve MV Pk E: 0.91 Aortic Valve AoV Pk [place]: 1.08 AoV Pk Grad: 5.00 VIKTOR: 2.59 LVOT LVOT Pk Osbaldo: 0.82 LVOT Mn Osbaldo: 0.59 LVOT VTI: 0.15 LVOT Pk Grad: 3.00 LVOT Mn Grad: 2.00 LVOT Diam: 2.00 LVOT Area: 3.14 Diastolic Function MV Pk E: 0.91 Right Ventricle TAPSE (mm): 15.20 TVS' Osbaldo: 10.60 Tricuspid Valve TR Pk [place]bal[place]: 2.45 TR Pk Grad: 24.00 RA Press: 8.00 RVSP: 32.00 Great Vessels Aorta Sinus of Valsalva: 3.00 2.0-3.5 cm Ao Asc: 2.70 2.1-3.4 cm Pulmonary Valve PV Pk Osbaldo: 0.83 Peak PV Grad: 3.00 Updated in Other Vendor System with Status of Final Cricket Glaser MD electronically signed on 04/24/2022 1:10:37 PM with status of Final
== END ==
LOC: HO.CARD 09:55
PROVIDERS: Visit Provider Internal Medicine Cardiovascular Disease
DX: I48.19 Other persistent atrial fibrillation (principal)
CPT/HCPCS: 93242; 93306

== ENCOUNTER → 2022-05-21 10:54 | Outpatient (BNVA) | payer MEDICARE, OTHER, SELFPAY | PROVIDERS: PCP Internal Medicine; Referring Provider Internal Medicine; Visit Provider Internal Medicine Cardiovascular Disease | DX: I48.19 Other persistent atrial fibrillation (principal); Z79.01 Long term (current) use of anticoagulants; Z79.899 Other long term (current) drug therapy | CPT/HCPCS: 93005; 99212 ==

== ENCOUNTER 2022-05-28 10:33 | Day surgery (SDC) | payer MEDICARE, OTHER, SELFPAY ==
--- NOTE | 2022-05-27 11:30 | P.CONAN_ITS ---
Documented by User: Kathia Pantoja NP 05/27/22 11:33 HPI - Anesthesia Eval Consult details Narrative: 76yo F for Cardioversion Eliquis for afib PMFSH Active Problems Active Problems: All Active Problems (Updated 05/05/22 @ 14:20 by Irene Martin MD) Persistent atrial fibrillation (Acute) Acute dyspnea (Acute) Bacteriuria (Acute) Hypothyroidism (Acute) Colonoscopy refused (Acute) Mammogram declined (Acute) HTN (hypertension) (Acute) DM type 2 (diabetes mellitus, type 2) (Acute) Past Medical History Medical History Bacteriuria Colonoscopy refused DM type 2 (diabetes mellitus, type 2) HTN (hypertension) Hypothyroidism Mammogram declined Surgical History Surgical History History of cholecystectomy Social History Social History Housing: House Patient Tobacco Use Status: Never used Tobacco e-Cigarette/Vaping Use: Never Used Second Hand Smoke Exposure: No Use of substances other than those prescribed or required for medical reasons: No Are you DNR?: No Advance Directives: No Advance Directives Information Provided: Yes Current occupational status: retired Cognitive needs: No Hearing needs: No Vision needs: Yes Meds Allergies Allergy/AdvReac Type Severity Reaction Status Date / Time No Known Allergies Allergy Verified 05/28/22 10:43 Exam Exam Date and Time: May 27, 2022 1130 Pertinent Lab Results Pertinent Lab Results: Laboratory Tests 03/24/22 04/19/22 15:09 09:30 WBC 6.1 Hgb 13.1 Hct 40.8 Plt Count 194 Sodium 141 Potassium 5.0 Chloride 107 Carbon Dioxide 26 BUN 20 H Creatinine 0.86 Narrative Narrative: ECHO 03/2022 Conclusions: - The left ventricular systolic function is mildly decreased.? ? The calculated ejection fraction is 51% by biplane method. ? ? ? - There is mildly decreased right ventricular systolic function. - No obvious valvular pathology seen on this study.? ? ? Holter 03/2022 * Total monitoring time 3 days. * Underlying rhythm is atrial fibrillation.? Average ventricular rate 85/Min.? Range 53 to 143/Min. * About 2.6% the time, rate greater than 100/Min.? Overall, reasonable rate control. * No significant pauses or AV blocks. * No patient diary. Assessment and Plan Assessment Anesthesia Assessment: Chart Reviewed Documented by User: Bernardino Russo MD 05/28/22 11:28 [facility] Past Medical History Medical History Bacteriuria Colonoscopy refused DM type 2 (diabetes mellitus, type 2) HTN (hypertension) Hypothyroidism Mammogram declined Family History Family history of problems with anesthesia: No Surgical History Surgical History History of cholecystectomy History of Problems with Anesthesia: No Social History Social History Housing: House Patient Tobacco Use Status: Never used Tobacco e-Cigarette/Vaping Use: Never Used Second Hand Smoke Exposure: No Use of substances other than those prescribed or required for medical reasons: No Are you DNR?: No Advance Directives: No Advance Directives Information Provided: Yes Current occupational status: retired Cognitive needs: No Hearing needs: No Vision needs: Yes Meds Allergies Allergy/AdvReac Type Severity Reaction Status Date / Time No Known Allergies Allergy Verified 05/28/22 10:43 Exam Airway Mallampati Class: III TM Dist: >3cm Neck ROM: Full Partial: Lower Loose/Missing/Broken Teeth: Yes Heart: irreg irreg s1s2 Lungs: cta b/l Assessment and Plan Assessment Anesthesia Assessment: Anesthesia Plan Discussed Final Anesthetic Review Family History of Problems with Anesthesia: No History of Problems with Anesthesia: No NPO: Yes ASA Class: III Final Preanesthetic Review: No Changes in Pt Med Stat, Meds/Allgs Chart Reviewed, Consent Obtained/Reviewed and Anes Risks/Benef Reviewed Patient Risk: Intermediate Procedure Risk: Intermediate Assessment/Block/Sedation in SS: Assess/Block/Sedation-SS Anesthetic Plan Anesthetic Plan: GA and Agree w/ Assess. and Plan Disposition: Standard PACU
[2022-05-28] VITALS (7 sets, daily range): BP systolic 119–171; BP diastolic 53–98; PULSE 59–98; RESP 16–41; TEMP 36.3–36.4; O2SAT 94–99; BMI 36.6
--- NOTE | 2022-05-28 09:29 | MHC.SHP ---
Pre-Procedural Eval Section A Date of Service: 05/28/22 The patient is an INPATIENT: No Changes since office visit: Yes Patient answered all questions; No Cold of Flu in the past 2 weeks, No New Medical Problems and No Changes in Medication The History & Physical has been completed within 30 days and I have reviewed it.: Yes Section B Chief Complaint: Other persistent atrial fibrillation Allergies: Allergies Allergy/AdvReac Type Severity Reaction Status Date / Time No Known Allergies Allergy Verified 05/21/22 10:58 Plan I have reviewed the history and physical and performed a pertinent physical examination on my patient. No changes have occurred unless specified. Time Spent With Patient Time: Total time managing care of this patient today ____ minutes.
[2022-05-28] MEDS: Lactated Ringers 1,000 ML 50 ML IVCONT (11:04)
[2022-05-28 11:11] LABS: Glucose, Whole Blood 98 mg/dL (60-115)
--- NOTE | 2022-05-28 12:01 | HO.CARDIVERS ---
Cardioversion Procedure Note Cardioversion Date of Procedure: Today Ordering Provider: Myself Performing Provider: Myself Indication for Procedure: Persistent atrial fibrillation Pre-Op Diagnosis: Same Post-Op Diagnosis: Normal sinus rhythm Performed with Transesophageal Echo: No History: See my office note Consent: Verbal and Written consent was obtained from the patient before starting and after confirming oral anticoagulation use. The patient was made aware of the risk of synchronized cardioversion including benefits and alternatives Procedure: After consent obtained, cardioversion pads were attached anteroposterior configuration and the patient was sedated by the anesthesia team. Once adequate sedation achieved, do 200 joules of biphasic synchronized energy in anteroposterior configuration. Complications: None Impression: Successful conversion to sinus rhythm Recommendations: 1. 12 lead EKG 2. Continue full oral anticoagulation 3. Follow-up after Holter monitor
--- NOTE | 2022-05-28 12:02 | ECG_ITS ---
Test Reason : s/p cardioversion Blood Pressure : / mmHG Vent. Rate : 056 BPM Atrial Rate : 056 BPM P-R Int : 182 ms QRS Dur : 084 ms QT Int : 454 ms P-R-T Axes : 072 -23 038 degrees QTc Int : 438 ms Sinus bradycardia Otherwise normal ECG When compared with ECG of 24-MAR-2022 14:51, Sinus rhythm has replaced Atrial fibrillation Vent. rate has decreased BY 43 BPM Nonspecific T wave abnormality, improved in Inferior leads Nonspecific T wave abnormality no longer evident in Lateral leads Referred By: Zoran Mazariegos Electronically Signed By:ZORAN MAZARIEGOS MD
== END 2022-05-28 13:07 | disposition home or self-care (01) ==
PROVIDERS: PCP Internal Medicine; Visit Provider Internal Medicine Cardiovascular Disease
PROC: 5A2204Z Restoration of Cardiac Rhythm, Single (ICD-10-PCS; principal; 2022-05-28 11:30)
DX: I48.19 Other persistent atrial fibrillation (principal); Z79.01 Long term (current) use of anticoagulants; I10 Essential (primary) hypertension; E11.9 Type 2 diabetes mellitus without complications; Z79.899 Other long term (current) drug therapy; Z79.84 Long term (current) use of oral hypoglycemic drugs; Z87.891 Personal history of nicotine dependence
CPT/HCPCS: 82947; 92960; 93005

== ENCOUNTER → 2022-06-10 13:11 | Outpatient (REF) | payer MEDICARE, OTHER, SELFPAY ==
--- NOTE | 2022-06-10 13:13 | HM_ITS ---
Conclusion: 1. Patient was monitored for total of 3 days 2. Baseline was normal sinus rhythm with average heart rate of 69 beats per minute 3. No significant pauses or bradycardia noted 4. Total of 4684 PACs accounting for 1.6% total beats account for frequent PACs 5. No episodes of atrial fibrillation 6. No patient reported events MTDD
== END ==
LOC: HO.CARD 13:11
PROVIDERS: PCP Internal Medicine; Visit Provider Internal Medicine Cardiovascular Disease
DX: I48.19 Other persistent atrial fibrillation (principal)
CPT/HCPCS: 93242

== ENCOUNTER → 2022-07-02 11:25 | Outpatient (BNVA) | payer MEDICARE, MEDICAID, SELFPAY | PROVIDERS: PCP Internal Medicine; Referring Provider Internal Medicine; Visit Provider Internal Medicine Cardiovascular Disease | DX: I48.0 Paroxysmal atrial fibrillation (principal); I10 Essential (primary) hypertension | CPT/HCPCS: 93005; 99212 ==

== ENCOUNTER 2022-07-27 09:20 | Outpatient (REF) | payer MEDICARE, MEDICAID, SELFPAY ==
[2022-07-27 11:16] LABS: MANUAL DIFF FLAG NO
[2022-07-27 11:34] LABS: Basophils Percent Auto 0.3 % (0-2); Eosinophils Absolute Auto 0.2 X10*3/uL (0.0-0.4); Eosinophils Percent Auto 5.1 % (0-4); Hemoglobin 12.4 g/dl (12.0-16.0); Imm Gran Abs Auto 0.01 X10*3/uL (0.00-0.03); Imm Gran Pct Auto 0.3 % (0.0-0.4); Lymphocytes Absolute Auto 1.1 X10*3/uL (1.2-4.9); Lymphocytes Percent Auto 33.2 % (20-40); Mean Corpuscular HGB Conc 31.8 g/dl (31.0-35.0); Mean Corpuscular Hemoglobin 27.9 pg (27.0-33.0); Mean Corpuscular Volume 87.8 fL (80.0-98.0); Mean Platelet Volume 11.1 fL (9.4-12.3); Monocytes Absolute Auto 0.3 X10*3/uL (0.1-1.2); Monocytes Percent Auto 9.3 % (2-11); Neutrophils Absolute Auto 1.7 x10*3/uL (2.0-8.3); Neutrophils Percent Auto 51.8 % (45-73); Platelet Count 164 X10*3/uL (160-400); Red Blood Count 4.44 X10*6/uL (4.20-5.50); Red Cell Distribution Width 13.2 % (11.0-16.0); White Blood Count 3.3 X10*3/uL (4.8-10.8)
[2022-07-27 11:46] LABS: Estimated Average Glucose 128 mg/dL; Hemoglobin A1c % 6.1 %
[2022-07-27 12:34] LABS: Alanine Aminotransferase 13 U/L (0-31); Albumin Level 3.7 g/dL (3.5-5.0); Alkaline Phosphatase 67 U/L (39-117); Anion Gap 10 (12-20); Aspartate Amino Transferase 16 U/L (5-31); Bilirubin Total 0.6 mg/dL (0.0-1.0); Blood Urea Nitrogen 18 mg/dL (9-16); Calcium 9.4 mg/dL (8.4-10.2); Carbon Dioxide 29 mmol/L (22-29); Chloride 107 mmol/L (96-108); Cholesterol 171 mg/dL; Estimated Glomerular Filt Rate > 60; Glucose Fasting 98 mg/dL (60-99); HDL Cholesterol 39 mg/dL; LDL Cholesterol Calculated 115 mg/dl; Potassium 4.9 mmol/L (3.3-5.1); Sodium 141 mmol/L (135-145); Triglycerides 89 mg/dL
== END 2022-07-27 09:21 | disposition home or self-care (01) ==
LOC: HO.HMGCLDS 09:20
PROVIDERS: PCP Internal Medicine; Visit Provider Internal Medicine
DX: E03.9 Hypothyroidism, unspecified (principal); E11.9 Type 2 diabetes mellitus without complications; I10 Essential (primary) hypertension; I48.19 Other persistent atrial fibrillation
CPT/HCPCS: 36415; 80053; 80061; 83036; 84443; 85025

== ENCOUNTER → 2022-07-29 13:04 | Outpatient (REF) | payer MEDICARE, MEDICAID, SELFPAY ==
--- NOTE | 2022-07-29 13:07 | CA_ITS ---
Transthoracic Echocardiogram Patient (Last, First, Middle): Anayeli Ortiz, Gender: Female Date of : 1945 Age: 76 Procedure Date: 07/29/2022 Procedure Type: Transthoracic Echocardiogram Location: OP Height: 157.48 cm Weight: 97.52 kg BSA: 1.97 m2 Heart Rate: bpm BP: 118 / 85 mmHg Client Services Assistant: LUPILLO Referring MD: Zoran Mazariegos MD Drama Director: Zoran Mazariegos MD Symptoms: I48.0 - Paroxysmal atrial fibrillation Study Quality: Fair ECG Rhythm: Sinus Conclusions: - Normal LV systolic function with grade 1 diastolic dysfunction Findings Left Ventricle Normal left ventricular size, thickness, and systolic function. The visually estimated ejection fraction is between 60-65%. Spectral Doppler is indicative of an impaired relaxation filling pattern. E/E prime ratio is <8, consistent with normal filling pressures. Evidence suggests grade I (mild) diastolic dysfunction. Prior Study Comparison Changes noted compared to prior study dated: 04/23/2022. LV systolic function is improved Measurements 2D Linear Measurements IVSd: 1.04 0.6-0.9/0.6-1.0 cm LVIDd: 4.78 3.9-5.3/4.2-5.9 cm LVIDd Index: 2.43 2.4-3.2/2.2-3.1 cm/m2 LVIDs: 2.79 2.0-3.6 cm LVPWd: 1.03 0.7-1.1 cm LV Mass: 220.69 67-162/88-224 g LV Mass Index: 112.03 43-95/49-115 g/m2 LVOT Diam: 2.10 3.0+(-)1.3 cm 2D Systolic Function EF 4C: 61.40 >55% EF 2C: 64.10 >55% EF BiP: 61.60 >55% Mitral Valve MV Pk E: 0.81 MV PK A: 1.10 MV Decel Time: 273.00 E/A: 0.70 E'Lateral: 9.79 E'Medial: 8.16 E/E' Med: 10.00 E/E' Lat: 8.30 PHT: 80.00 MVA PHT: 2.75 Decel [place]: 2.99 LVOT LVOT Pk Osbaldo: 1.06 LVOT Mn Osbaldo: 0.77 LVOT VTI: 0.30 LVOT Pk Grad: 4.00 LVOT Mn Grad: 3.00 LVOT Diam: 2.10 LVOT Area: 3.46 Diastolic Function MV Pk E: 0.81 MV Pk A: 1.10 E/A: 0.70 E'Medial: 8.16 E/E' Med: 10.00 E' Laterial: 9.79 E/E' Lat: 8.30 Tricuspid Valve RA Press: 3.00 Updated in Other Vendor System with Status of Final Zoran Mazariegos MD electronically signed on 07/30/2022 3:50:14 PM with status of Final
== END ==
LOC: HO.CARD 13:04
PROVIDERS: PCP Internal Medicine; Visit Provider Internal Medicine Cardiovascular Disease
DX: I48.0 Paroxysmal atrial fibrillation (principal)
CPT/HCPCS: 93308

== ENCOUNTER 2022-10-26 09:57 | Outpatient (REF) | payer MEDICARE, MEDICAID, SELFPAY ==
[2022-10-26 13:54] LABS: Estimated Average Glucose 128 mg/dL; Hemoglobin A1c % 6.1 %
[2022-10-26 14:13] LABS: Alanine Aminotransferase 12 U/L (0-31); Albumin Level 3.7 g/dL (3.5-5.0); Alkaline Phosphatase 67 U/L (39-117); Anion Gap 15 (12-20); Aspartate Amino Transferase 15 U/L (5-31); Bilirubin Total 0.5 mg/dL (0.0-1.0); Blood Urea Nitrogen 18 mg/dL (9-16); Calcium 9.3 mg/dL (8.4-10.2); Carbon Dioxide 24 mmol/L (22-29); Chloride 107 mmol/L (96-108); Cholesterol 157 mg/dL; Estimated Glomerular Filt Rate > 60; Glucose Fasting 94 mg/dL (60-99); HDL Cholesterol 37 mg/dL; LDL Cholesterol Calculated 104 mg/dl; Potassium 4.5 mmol/L (3.3-5.1); Sodium 141 mmol/L (135-145); Total Protein 7.7 g/dL (6.5-8.0); Triglycerides 80 mg/dL
[2022-10-26 14:30] LABS: TSH reflex Free T4 2.73 uIU/mL (0.32-4.0)
[2022-10-26 14:53] LABS: Creatinine Urine 96.82 mg/dL; Microalbum/Creatinine Ratio Ur 6.1 ug/mg cr
== END 2022-10-26 09:58 | disposition home or self-care (01) ==
LOC: HO.HMGCLDS 09:57
PROVIDERS: PCP Internal Medicine; Visit Provider Internal Medicine
DX: E03.9 Hypothyroidism, unspecified (principal); E11.9 Type 2 diabetes mellitus without complications; I10 Essential (primary) hypertension; I48.0 Paroxysmal atrial fibrillation
CPT/HCPCS: 36415; 80053; 80061; 82043; 83036; 84443

== ENCOUNTER 2022-11-01 13:09 | Outpatient (AMB) | payer MEDICARE, SELFPAY ==
--- NOTE | 2022-11-01 13:46 | A.OFFPC_ITS ---
Vital Signs 11/01/22 13:47 Height 5 ft 2 in Weight 220 lb BMI 40.2 BP 118/74 Blood Pressure Location Lt brachial Position Sitting Pulse 94 Pulse Source Pulse Oximeter Pulse Oximetry (%) 94 Oxygen Delivery Method Room Air Intake Visit Reasons: 3 month follow up Intake Note: Pt is here today for 3 months follow up visit. Pt states that she has chest congestion, wheezing and cough for a week now. Allergies No Known Allergies Allergy (Verified 11/01/22 13:53) Medication List - Last Reconciled 11/01/22 by Irene Martin MD apixaban (Eliquis) 5 mg PO BID 30 days diltiazem HCl (Cardizem CD) 120 mg PO DAILY glipizide 5 mg PO DAILY levothyroxine 50 mcg PO DAILY lisinopril 10 mg PO DAILY Tobacco use date assessed: 11/01/22 Fall risk assessment: No Falls in past year Last assessed Fall Risk: 11/01/22 Dental Screening Dental Screen Date: 11/01/22 Did you have a dental visit in the last 12 months?: Yes Did you have a dental problem in the last 6 months where you did not have access to dental care?: No Was dental information given to patient?: Patient has dentist HPI 3 month follow up HPI Details Patient presents complaining of productive cough increased wheezing and shortness of breath for 1 week. She has small amount of yellow sputum but denies fever chills sore throat or sinus congestion. Hypertension hypothyroidism and type 2 diabetes are table current medications. [facility] Medical History Bacteriuria Colonoscopy refused DM type 2 (diabetes mellitus, type 2) HTN (hypertension) Hypothyroidism Mammogram declined Paroxysmal atrial fibrillation Persistent atrial fibrillation Surgical History History of cholecystectomy Family History Father No problems noted. Mother Pre-diabetes Social History Housing: House Patient Tobacco Use Status: Never used Tobacco e-Cigarette/Vaping Use: Never Used Second Hand Smoke Exposure: No Current occupational status: retired Cognitive needs: No Hearing needs: No Vision needs: Yes Questionnaire Thrive Questionnaire Date Thrive assessed: 05/05/22 MAL-7 AMB Questionnaire MAL-7 Date MAL - 7 assessed: 05/05/22 Source: Developed by Drs. Truong Nicholas, Raiza Clark, Cesar Luis and colleagues, with an educational keenan from [employer]. Review of Systems Const All systems reviewed & are unremarkable except as noted in HPI and below Reports no additional complaints Eyes Reports no additional complaints ENT Reports no additional complaints Card Reports no additional complaints Resp Reports no additional complaints GI Reports no additional complaints Physical exam (Primary Care) Vital Signs: Last Vital Signs Pulse 94 11/01/22 13:47 BP 118/74 11/01/22 13:47 Pulse Ox 94 11/01/22 13:47 Oxygen Delivery Method Room Air 11/01/22 13:47 BMI result Body Mass Index 40.2 Tobacco/Smoking Status: Tobacco use Status Tobacco use date assessed 11/01/22 11/01/22 13:59 Patient Tobacco Use Status Never used Tobacco 11/01/22 13:46 e-Cigarette/Vaping Use Never Used 11/01/22 13:46 Thrive Assessment: Date of Thrive Assessment Date Thrive assessed 05/05/22 11/01/22 13:46 Const General: no acute distress HENMT Ears: hearing grossly normal bilaterally Mouth: Normal oral and palatal mucosa present Throat: Yes posterior oropharynx normal Neck Neck: Yes no lymphadenopathy and Yes supple Resp Effort & Inspection: normal respiratory effort Auscultation: wheezes and diminished lung sounds Cardio Rhythm: regular rhythm Heart sounds: S1 normal heart sound present and S2 normal heart sound present Assessment and Plan Assessment & Plan (1) Paroxysmal atrial fibrillation: Comment: Maintaining rhythm status post cardioversion, May 2022. Feeling better with rhythm control Code(s): I48.0 - Paroxysmal atrial fibrillation (2) Bronchitis: Code(s): J40 - Bronchitis, not specified as acute or chronic Plan: Prednisone taper, Z-Simone and albuterol are prescribed. supportive care discussed with the patient . she will follow-up in 1 week Medications: New azithromycin For 250 mg dose pack: take 500 mg today (day 1), then 250 mg for 4 days (days 2-5) PO 6 tabs 0RF prednisone 60 mg qd x 3 days, then 40 mg qd x 3 days, then 20 mg qd x 3 days orally 18 tabs 0RF albuterol sulfate 90 mcg/actuation 2 puffs inhalation Q6H PRN 8.5 grams 1RF shortness of breath or wheezing Coding Level of Care Code Est Pt Level 3 (22382) Diagnoses Paroxysmal atrial fibrillation I48.0 Bronchitis J40
[2022-11-01 13:47] VITALS: BP 118/74; PULSE 94; O2SAT 94; BMI 40.2
== END 2022-11-01 14:32 | disposition home or self-care (01) ==
PROVIDERS: Visit Provider Internal Medicine
DX: I48.0 Paroxysmal atrial fibrillation (principal); J40 Bronchitis, not specified as acute or chronic
CPT/HCPCS: 99213

== ENCOUNTER 2022-11-09 13:31 | Outpatient (AMB) | payer MEDICARE, SELFPAY ==
--- NOTE | 2022-11-09 13:58 | MHC.PC.OV ---
Vital Signs 11/09/22 13:59 Height 5 ft 2 in Weight 220 lb BMI 40.2 BP 126/78 Blood Pressure Location Lt brachial Position Sitting Pulse 63 Pulse Source Pulse Oximeter Pulse Oximetry (%) 96 Oxygen Delivery Method Room Air Intake Visit Reasons: 1 week follow up Intake Note: Pt is here today for 1 week follow up visit on Bronchitis. Allergies No Known Allergies Allergy (Verified 11/09/22 14:01) Medication List - Last Reconciled 11/09/22 by Irene Martin MD albuterol sulfate 90 mcg/actuation 2 puffs inhalation Q6H PRN apixaban (Eliquis) 5 mg PO BID 30 days diltiazem HCl (Cardizem CD) 120 mg PO DAILY glipizide 5 mg PO DAILY levothyroxine 50 mcg PO DAILY lisinopril 10 mg PO DAILY prednisone 60 mg qd x 3 days, then 40 mg qd x 3 days, then 20 mg qd x 3 days orally Tobacco use date assessed: 11/01/22 HPI 1 week follow up HPI Details Patient presents for the follow-up of acute bronchitis. She is feeling better cough resolved and patient denies shortness of breath or wheezing. Hypertension is controlled on current medications. [facility] Medical History Bacteriuria Colonoscopy refused DM type 2 (diabetes mellitus, type 2) HTN (hypertension) Hypothyroidism Mammogram declined Paroxysmal atrial fibrillation Persistent atrial fibrillation Surgical History History of cholecystectomy Family History Father No problems noted. Mother Pre-diabetes Social History Housing: House Patient Tobacco Use Status: Never used Tobacco e-Cigarette/Vaping Use: Never Used Second Hand Smoke Exposure: No Current occupational status: retired Cognitive needs: No Hearing needs: No Vision needs: Yes Questionnaire Thrive Questionnaire Date Thrive assessed: 05/05/22 MAL-7 AMB Questionnaire MAL-7 Date MAL - 7 assessed: 05/05/22 Source: Developed by Drs. Truong Nicholas, Raiza Clark, Cesar Luis and colleagues, with an educational keenan from [employer]. Review of Systems Const All systems reviewed & are unremarkable except as noted in HPI and below Reports no additional complaints ENT Reports no additional complaints Card Reports no additional complaints Resp Reports no additional complaints GI Reports no additional complaints Reports no additional complaints Physical exam (Primary Care) Vital Signs: Last Vital Signs Pulse 63 11/09/22 13:59 BP 126/78 11/09/22 13:59 Pulse Ox 96 11/09/22 13:59 Oxygen Delivery Method Room Air 11/09/22 13:59 BMI result Body Mass Index 40.2 Tobacco/Smoking Status: Tobacco use Status Tobacco use date assessed 11/01/22 11/09/22 13:58 Patient Tobacco Use Status Never used Tobacco 11/09/22 13:58 e-Cigarette/Vaping Use Never Used 11/09/22 13:58 Thrive Assessment: Date of Thrive Assessment Date Thrive assessed 05/05/22 11/09/22 13:58 Const General: no acute distress HENMT Ears: hearing grossly normal bilaterally Neck Neck: Yes supple Resp Effort & Inspection: normal respiratory effort Auscultation: diminished lung sounds Cardio Rhythm: regular rhythm Heart sounds: S1 normal heart sound present and S2 normal heart sound present GI Inspection: Yes normal to inspection Assessment and Plan Assessment & Plan (1) HTN (hypertension): Code(s): I10 - Essential (primary) hypertension Plan: Continue current medications (2) DM type 2 (diabetes mellitus, type 2): Code(s): E11.9 - Type 2 diabetes mellitus without complications Plan: A1c is 6.1, glipizide will be changed to Farxiga 5 mg a day ADA diet increase physical activity weight loss discussed with the patient. she will follow-up in 3 months with a fasting labs before (3) Hypothyroidism: Code(s): E03.9 - Hypothyroidism, unspecified Plan: Continue levothyroxine Orders: Orders Comprehensive [place]. Panel Fast 3 Months E03.9 - Hypothyroidism, unspecified, E11.9 - Type 2 diabetes mellitus without complications, I10 - Essential (primary) hypertension Hemoglobin A1c 3 Months E03.9 - Hypothyroidism, unspecified, E11.9 - Type 2 diabetes mellitus without complications, I10 - Essential (primary) hypertension Lipid Panel 3 Months E03.9 - Hypothyroidism, unspecified, E11.9 - Type 2 diabetes mellitus without complications, I10 - Essential (primary) hypertension Microalbumin, Random (w Creat) 3 Months E03.9 - Hypothyroidism, unspecified, E11.9 - Type 2 diabetes mellitus without complications, I10 - Essential (primary) hypertension Complete Blood Count Auto Diff 3 Months E03.9 - Hypothyroidism, unspecified, E11.9 - Type 2 diabetes mellitus without complications, I10 - Essential (primary) hypertension Medications: New Farxiga (dapagliflozin propanediol) 5 mg PO DAILY 90 tabs 1RF NS Discontinued glipizide Discontinued Reason: Doctor's Order 5 mg PO DAILY 90 tabs 3RF Coding Level of Care Code Est Pt Level 3 (19360) Diagnoses HTN (hypertension) I10 DM type 2 (diabetes mellitus, type 2) E11.9 Hypothyroidism E03.9
[2022-11-09 13:59] VITALS: BP 126/78; PULSE 63; O2SAT 96; BMI 40.2
== END 2022-11-09 14:34 | disposition home or self-care (01) ==
PROVIDERS: PCP Internal Medicine; Visit Provider Internal Medicine
DX: I10 Essential (primary) hypertension (principal); E11.9 Type 2 diabetes mellitus without complications; E03.9 Hypothyroidism, unspecified
CPT/HCPCS: 99213

== ENCOUNTER 2022-11-26 10:12 | Outpatient (AMB) | payer MEDICARE, SELFPAY ==
--- NOTE | 2022-11-26 11:04 | AM.OFFWIN_ITS ---
Intake Vital Signs 11/26/22 11:10 Height 5 ft 2 in Weight 220 lb BMI 40.2 BP 130/66 Blood Pressure Location Lt brachial Position Sitting Pulse 82 Pulse Source Pulse Oximeter Pulse Oximetry (%) 94 Oxygen Delivery Method Room Air Intake Visit Reasons: EP Diff Breathing/Cough/Congestion (masked) Intake Note: Pt is here today for a walk in visit. Pt states that she was seen on 11/01/22 for the same issue. Pt states that she has a cough and whezzing and can't catch a breath at times. Pt states that last time she had bronchitis and she finished antibiotic and and Prednisone. Patient Tobacco Use Status: Never used Tobacco Allergies No Known Allergies Allergy (Verified 11/26/22 11:28) Medication List - Last Reconciled 11/26/22 by Esau Christopher MD albuterol sulfate 90 mcg/actuation 2 puffs inhalation Q6H PRN apixaban (Eliquis) 5 mg PO BID 30 days diltiazem HCl (Cardizem CD) 120 mg PO DAILY Farxiga (dapagliflozin propanediol) 5 mg PO DAILY NS levothyroxine 50 mcg PO DAILY lisinopril 10 mg PO DAILY HPI EP Diff Breathing/Cough/Congestion (masked) HPI Details 77-year-old female presents to the office for a sick visit. merchandising assistant is translating. For the past 3 days patient is complaining of wheezing, nonproductive cough and tightness in the chest. No fevers or chills. [facility] Medical History Bacteriuria Colonoscopy refused DM type 2 (diabetes mellitus, type 2) HTN (hypertension) Hypothyroidism Mammogram declined Paroxysmal atrial fibrillation Persistent atrial fibrillation Surgical History History of cholecystectomy Family History Father No problems noted. Mother Pre-diabetes Social History Housing: House Patient Tobacco Use Status: Never used Tobacco e-Cigarette/Vaping Use: Never Used Second Hand Smoke Exposure: No Current occupational status: retired Cognitive needs: No Hearing needs: No Vision needs: Yes Physical Exam Vital Signs: Last Vital Signs Pulse 82 09/01/23 11:10 BP 130/66 11/26/22 11:10 Pulse Ox 94 11/26/22 11:10 Oxygen Delivery Method Room Air 11/26/22 11:10 BMI result Body Mass Index 40.2 Const General: cooperative and healthy appearing Nutritional Appearance: well nourished Orientation/consciousness: patient oriented x3 Limitations: no limitations HEENT Head: Yes normal to inspection Eyes General: appearance normal, both eyes and all related structures Neck Neck: Yes normal visual inspection Chest Other: Scattered wheeze bilaterally Chest palpation & inspection: normal palpation of entire chest wall Resp Effort & Inspection: normal respiratory effort Neuro General: patient oriented x3 Assessment & Plan Assessment & Plan (1) Pneumonia: Code(s): J18.9 - Pneumonia, unspecified organism Plan: Chest x-ray shows possible left lower lobe infiltrate. Levofloxacin for 7 days, prednisone and albuterol called in. If symptoms do not improve to follow-up here. Orders: Orders XR chest 2V Today R05.9 - Cough, unspecified Coding Level of Care Code Est Pt Level 4 (93722) Diagnoses Pneumonia J18.9
[2022-11-26 11:10] VITALS: BP 130/66; PULSE 82; O2SAT 94; BMI 40.2
== END 2022-11-26 11:41 | disposition home or self-care (01) ==
PROVIDERS: PCP Internal Medicine; Visit Provider Internal Medicine
DX: J18.9 Pneumonia, unspecified organism (principal)
CPT/HCPCS: 99214

== ENCOUNTER 2022-11-26 11:27 | Outpatient (REF) | payer MEDICARE, MEDICAID, SELFPAY ==
--- NOTE | ~2022-11-26 | XR_ITS ---
EXAMINATION: XR CHEST CLINICAL INFORMATION: Cough COMPARISON: Radiograph from 03/16/2022 TECHNIQUE: 2 views of the chest were obtained. FINDINGS: Subtle radiopacity in the left lung base may reflect atelectasis versus evolving infectious/inflammatory etiology. No pneumothorax. Trachea is midline. Cardiac mediastinal silhouette is not enlarged. No large pleural effusion. Degenerative changes of the thoracolumbar spine. Soft tissues are unremarkable. XR/XR chest 2V IMPRESSION: Subtle radiopacity in the left lung base may reflect atelectasis versus evolving infectious/inflammatory etiology.
== END 2022-11-26 11:28 | disposition home or self-care (01) ==
LOC: HO.HMGCX 11:27
PROVIDERS: PCP Internal Medicine; Visit Provider Internal Medicine
DX: R05.9 Cough, unspecified (principal)
CPT/HCPCS: 71046

== ENCOUNTER 2022-12-06 12:10 | Outpatient (REF) | payer MEDICARE, MEDICAID, SELFPAY ==
[2022-12-06 13:16] LABS: MANUAL DIFF FLAG NO
[2022-12-06 13:41] LABS: B Type Natriuretic Peptide 19 pg/mL (<100)
[2022-12-06 14:02] LABS: Basophils Percent Auto 0.4 % (0-2); Eosinophils Absolute Auto 0.2 X10*3/uL (0.0-0.4); Eosinophils Percent Auto 3.8 % (0-4); Hematocrit 39.1 % (37.0-47.0); Hemoglobin 12.9 g/dl (12.0-16.0); Imm Gran Abs Auto 0.01 X10*3/uL (0.00-0.03); Imm Gran Pct Auto 0.2 % (0.0-0.4); Lymphocytes Absolute Auto 1.1 X10*3/uL (1.2-4.9); Lymphocytes Percent Auto 23.3 % (20-40); Mean Corpuscular Hemoglobin 27.5 pg (27.0-33.0); Mean Corpuscular Volume 83.4 fL (80.0-98.0); Mean Platelet Volume 11.3 fL (9.4-12.3); Monocytes Absolute Auto 0.5 X10*3/uL (0.1-1.2); Monocytes Percent Auto 9.4 % (2-11); Neutrophils Percent Auto 62.9 % (45-73); Platelet Count 164 X10*3/uL (160-400); Red Blood Count 4.69 X10*6/uL (4.20-5.50); Red Cell Distribution Width 14.3 % (11.0-16.0); White Blood Count 4.8 X10*3/uL (4.8-10.8)
== END 2022-12-06 12:11 | disposition home or self-care (01) ==
LOC: HO.HMGCLDS 12:10
PROVIDERS: PCP Internal Medicine; Visit Provider Internal Medicine
DX: R06.09 Other forms of dyspnea (principal); J18.9 Pneumonia, unspecified organism
CPT/HCPCS: 36415; 83880; 85025

== ENCOUNTER 2023-01-17 14:36 | Outpatient (REF) | payer MEDICARE, OTHER, SELFPAY ==
--- NOTE | 2023-01-17 15:42 | PFT_ITS ---
INDICATION: COPD. SPIROMETRY: FEV1 to FVC is 60% with an FEV1 of 1.48 L, which is 116% predicted and an FVC of 2.49 L, which is 115% predicted. There was a significant response to bronchodilators noted. Maximum voluntary ventilation 58% predicted. LUNG VOLUMES: Total lung capacity 90% predicted, with an expiratory reserve volume of 59% predicted and residual volume of 110% predicted. DIFFUSION CAPACITY: DLCO of 82% predicted. COMPARISONS: None. INTERPRETATION: There is an obstructive ventilatory defect consistent with mild COPD. There was a significant response to bronchodilators noted. There is a moderate decrease in the maximum voluntary ventilation secondary to likely deconditioning, although cannot rule out neuromuscular conditions. Lung volumes are within normal limits, and the diffusion capacity also within normal limits. Clinical correlation warranted. Salomón Coleman MD MR/MODL / [id number]
== END 2023-01-17 14:37 | disposition home or self-care (01) ==
LOC: HO.RESP 14:36
PROVIDERS: PCP Internal Medicine; Visit Provider Internal Medicine
DX: J40 Bronchitis, not specified as acute or chronic (principal); I48.0 Paroxysmal atrial fibrillation; R06.09 Other forms of dyspnea
CPT/HCPCS: 94010; 94727; 94729

== ENCOUNTER → 2023-01-17 15:42 | Outpatient (BNV) | payer MEDICARE, MEDICAID, SELFPAY | PROVIDERS: PCP Internal Medicine; Visit Provider Hospitalist | DX: J40 Bronchitis, not specified as acute or chronic (principal); I48.0 Paroxysmal atrial fibrillation | CPT/HCPCS: 94060; 94727; 94729 ==

== ENCOUNTER 2023-01-31 15:25 | Outpatient (AMB) | payer MEDICARE, MEDICAID, SELFPAY ==
[2023-01-31 15:26] VITALS: BP 124/74; PULSE 68; BMI 39.1
--- NOTE | 2023-01-31 15:26 | A.OFFVIS_ITS ---
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 She has been doing very well from cardiac perspective. She is accompanied by her son who acted as forms analysis manager. Patient has been doing well with no symptoms exertional shortness of breath. Has more energy. Denies any orthopnea, PND. Denies any leg edema. No bleeding issues or neurologic events. Most recent echocardiogram shows improvement in LV systolic function to normal range. [facility] Medical History Paroxysmal atrial fibrillation Persistent atrial fibrillation Bacteriuria Hypothyroidism Colonoscopy refused Mammogram declined HTN (hypertension) DM type 2 (diabetes mellitus, type 2) Surgical History History of cholecystectomy Family History Father No problems noted. Mother Pre-diabetes Social History Housing: House Patient Tobacco Use Status: Never used Tobacco e-Cigarette/Vaping Use: Never Used Second Hand Smoke Exposure: No Current occupational status: retired Cognitive needs: No Hearing needs: No Vision needs: Yes Review of Systems Const Denies chills, Denies fatigue, Denies fever(s), Denies frequent falls, Denies weakness, Denies weight gain and Denies weight loss ENT Denies dizziness Card Denies chest pain, Denies leg edema, Denies lightheadedness, Denies palpitation s, Denies dyspnea, Denies dyspnea on exertion, Denies orthopnea and Denies other (loss of consciousness) Resp Denies cough, Denies dyspnea and Denies dyspnea on exertion GI Denies hematochezia and Denies change in stool character Musc Denies abnormal gait, Denies muscle weakness, Denies numbness, Denies radiating pain into limb and Denies tingling Neuro Denies Abnormal speech present, Denies abnormal gait, Denies dizziness, Denies frequent falls, Denies numbness, Denies tingling and Denies weakness Endo Denies fatigue and Denies palpitations Physical Exam Vital Signs: Last Vital Signs Pulse 68 01/31/23 15:26 BP 124/74 01/31/23 15:26 BMI result Body Mass Index 39.1 Const General: cooperative, comfortable, no acute distress, alert and awake Nutritional Appearance: obese Orientation/consciousness: patient oriented x3 Limitations: no limitations Neck Neck: Yes trachea midline, Yes supple and Yes no JVD Resp Effort & Inspection: normal respiratory effort Auscultation: no rales, no wheezes and diminished lung sounds Cardio Jugular venous distension: no JVD Palpation: normal PMI Rate: regular rate Rhythm: regular rhythm Heart sounds: S1 normal heart sound present, S2 normal heart sound present, no click, no gallops and no murmurs GI Inspection: Yes obesity Skin General skin exam: no rashes or lesions noted Neuro General: patient oriented x3 Speech: No Abnormal speech present Extrem General: Yes no clubbing, cyanosis or edema Assessment & Plan Assessment & Plan (1) Paroxysmal atrial fibrillation: Comment: Maintaining rhythm status post cardioversion, May 2022. Feeling better with rhythm control Code(s): I48.0 - Paroxysmal atrial fibrillation Plan: Symptomatic paroxysmal atrial fibrillation related to loss of AV synchrony with reduced LV ejection fraction to low normal range which is normalized after maintaining rhythm. She has significant improvement in her symptoms with exercise capacity. She has done well with maintaining rhythm will pursued rhythm control approach. No indication for antiarrhythmic drug therapy at this point time. Continue Cardizem therapy. Avoidance of stimulants was discussed. Advised to call me if she has recurrent symptoms. We discussed about monitoring with smart phone based EKG sensor although she does not carry a smart phone. Continue full oral anticoagulation, currently on Eliquis 5 mg b.i.d.. Semi annual renal function test should be pursued. Will follow up in the clinic in 1 year's time after an echocardiogram. Thank you for allowing me to partake in her care Orders: Orders CA echo transthoracic complete 50 Weeks I48.0 - Paroxysmal atrial fibrillation Medications: Refilled diltiazem HCl (Cardizem CD) 120 mg PO DAILY 90 caps 3RF I48.0 - Paroxysmal atrial fibrillation Coding Level of Care Code Est Pt Level 4 (52916) Diagnoses Paroxysmal atrial fibrillation I48.0
== END 2023-01-31 15:40 | disposition home or self-care (01) ==
PROVIDERS: PCP Internal Medicine; Visit Provider Internal Medicine Cardiovascular Disease
DX: I48.0 Paroxysmal atrial fibrillation (principal)
CPT/HCPCS: 99214

== ENCOUNTER → 2023-01-31 15:25 | Outpatient (BNVA) | payer MEDICARE, MEDICAID, SELFPAY | PROVIDERS: PCP Internal Medicine; Visit Provider Internal Medicine Cardiovascular Disease | DX: I48.0 Paroxysmal atrial fibrillation (principal); Z79.01 Long term (current) use of anticoagulants; Z79.899 Other long term (current) drug therapy | CPT/HCPCS: 99212 ==

== ENCOUNTER 2023-02-14 10:31 | Outpatient (REF) | payer MEDICARE, MEDICAID, SELFPAY ==
[2023-02-14 13:15] LABS: MANUAL DIFF FLAG NO
[2023-02-14 13:29] LABS: Basophils Percent Auto 0.6 % (0-2); Eosinophils Absolute Auto 0.3 X10*3/uL (0.0-0.4); Eosinophils Percent Auto 7.8 % (0-4); Hematocrit 41.6 % (37.0-47.0); Hemoglobin 13.4 g/dl (12.0-16.0); Imm Gran Abs Auto 0.01 X10*3/uL (0.00-0.03); Imm Gran Pct Auto 0.3 % (0.0-0.4); Lymphocytes Absolute Auto 1.3 X10*3/uL (1.2-4.9); Lymphocytes Percent Auto 37.5 % (20-40); Mean Corpuscular HGB Conc 32.2 g/dl (31.0-35.0); Mean Corpuscular Hemoglobin 26.9 pg (27.0-33.0); Mean Corpuscular Volume 83.5 fL (80.0-98.0); Monocytes Absolute Auto 0.3 X10*3/uL (0.1-1.2); Monocytes Percent Auto 9.2 % (2-11); Neutrophils Absolute Auto 1.6 x10*3/uL (2.0-8.3); Neutrophils Percent Auto 44.6 % (45-73); Platelet Count 153 X10*3/uL (160-400); Red Blood Count 4.98 X10*6/uL (4.20-5.50); Red Cell Distribution Width 13.3 % (11.0-16.0); White Blood Count 3.5 X10*3/uL (4.8-10.8)
[2023-02-14 13:43] LABS: Estimated Average Glucose 174 mg/dL; Hemoglobin A1c % 7.7 % (<6.0)
[2023-02-14 14:19] LABS: Alanine Aminotransferase 7 U/L (0-31); Albumin Level 3.8 g/dL (3.5-5.0); Alkaline Phosphatase 54 U/L (39-117); Anion Gap 10 (12-20); Aspartate Amino Transferase 12 U/L (5-31); Bilirubin Total 0.3 mg/dL (0.0-1.0); Blood Urea Nitrogen 16 mg/dL (9-16); Calcium 9.2 mg/dL (8.4-10.2); Carbon Dioxide 26 mmol/L (22-29); Chloride 108 mmol/L (96-108); Cholesterol 174 mg/dL (<200); Estimated Glomerular Filt Rate > 60; Glucose Fasting 121 mg/dL (60-99); HDL Cholesterol 36 mg/dL (>40); LDL Cholesterol Calculated 118 mg/dL (<100); Potassium 4.6 mmol/L (3.3-5.1); Sodium 139 mmol/L (135-145); Total Protein 7.2 g/dL (6.5-8.0); Triglycerides 101 mg/dL (<150)
[2023-02-14 14:20] LABS: Creatinine Urine 84.95 mg/dL
== END 2023-02-14 10:32 | disposition home or self-care (01) ==
LOC: HO.HMGCLDS 10:31
PROVIDERS: PCP Internal Medicine; Visit Provider Internal Medicine
DX: I10 Essential (primary) hypertension (principal); E11.9 Type 2 diabetes mellitus without complications; E03.9 Hypothyroidism, unspecified
CPT/HCPCS: 36415; 80053; 80061; 82043; 82570; 83036; 85025

== ENCOUNTER 2023-02-21 12:36 | Outpatient (AMB) | payer MEDICARE, MEDICAID, SELFPAY ==
[2023-02-21 12:38] VITALS: BP 136/78; PULSE 71; O2SAT 95; BMI 39.0
--- NOTE | 2023-02-21 12:38 | A.OFFPC_ITS ---
Vital Signs 02/21/23 12:38 Height 5 ft 2 in Weight 213 lb BMI 39.0 BP 136/78 Blood Pressure Location Lt brachial Position Sitting Pulse 71 Pulse Source Pulse Oximeter Pulse Oximetry (%) 95 Oxygen Delivery Method Room Air Intake Visit Reasons: 3 month f/u, rescheduled from 01/31 Intake Note: Pt is here today for 3 months follow up visit. Pt states that she has been having the same symptoms as last 2 times, cough congestion SOB for last 2 weeks. Allergies No Known Allergies Allergy (Verified 02/21/23 12:43) Medication List - Last Reconciled 02/21/23 by Irene Martin MD albuterol sulfate 90 mcg/actuation (Ventolin HFA) 2 puffs inhalation Q6H PRN apixaban (Eliquis) 5 mg PO BID 30 days dapagliflozin propanediol (Farxiga) 10 mg PO DAILY diltiazem HCl (Cardizem CD) 120 mg PO DAILY levothyroxine 50 mcg PO DAILY lisinopril 10 mg PO DAILY Tobacco use date assessed: 02/21/23 Dental Screening Dental Screen Date: 02/21/23 Did you have a dental visit in the last 12 months?: No Did you have a dental problem in the last 6 months where you did not have access to dental care?: No Was dental information given to patient?: Patient declined HPI 3 month f/u, rescheduled from 01/31 HPI Details Pt presents for f/u HTN, DM 2, paroxymal A fib. Pt c/o sore throat and cough, wheezing and CUEVA for 2 weeks. Patient denies pleurisy fever chills palpitations chest pain. [facility] Medical History Paroxysmal atrial fibrillation Persistent atrial fibrillation Bacteriuria Hypothyroidism Colonoscopy refused Mammogram declined HTN (hypertension) DM type 2 (diabetes mellitus, type 2) Surgical History History of cholecystectomy Family History Father No problems noted. Mother Pre-diabetes Housing: House Patient Tobacco Use Status: Never used Tobacco e-Cigarette/Vaping Use: Never Used Second Hand Smoke Exposure: No Current occupational status: retired Cognitive needs: No Hearing needs: No Vision needs: Yes Questionnaire Thrive Questionnaire Date Thrive assessed: 05/05/22 MAL-7 AMB Questionnaire MAL-7 Date MAL - 7 assessed: 05/05/22 Source: Developed by Drs. Truong Nicholas, Raiza Clark, Cesar Luis and colleagues, with an educational keenan from [employer]. Review of Systems Const All systems reviewed & are unremarkable except as noted in HPI and below Reports no additional complaints Eyes Reports no additional complaints ENT Reports no additional complaints Card Reports no additional complaints Resp Reports no additional complaints GI Reports no additional complaints Reports no additional complaints Physical exam (Primary Care) Vital Signs: Last Vital Signs Pulse 71 02/21/23 12:38 BP 136/78 02/21/23 12:38 Pulse Ox 95 02/21/23 12:38 Oxygen Delivery Method Room Air 02/21/23 12:38 BMI result Body Mass Index 39.0 Tobacco/Smoking Status: Tobacco use Status Tobacco use date assessed 02/21/23 02/21/23 12:44 Patient Tobacco Use Status Never used Tobacco 02/21/23 12:44 e-Cigarette/Vaping Use Never Used 02/21/23 12:41 Thrive Assessment: Date of Thrive Assessment Date Thrive assessed 05/05/22 02/21/23 12:41 Const General: no acute distress HENMT Ears: hearing grossly normal bilaterally General nose exam: Normal external nose present Mouth: Normal oral and palatal mucosa present Throat: Yes posterior oropharynx normal Eyes General: appearance normal, both eyes and all related structures Resp Effort & Inspection: normal respiratory effort Auscultation: wheezes and diminished lung sounds Cardio Rhythm: regular rhythm Heart sounds: S1 normal heart sound present and S2 normal heart sound present GI Inspection: Yes normal to inspection Palpation (GI): Soft to palpation Percussion: Yes normal to percussion Auscultation: normal bowel sounds Assessment and Plan Assessment & Plan (1) Paroxysmal atrial fibrillation: Comment: Maintaining rhythm status post cardioversion, May 2022. Feeling better with rhythm control Code(s): I48.0 - Paroxysmal atrial fibrillation Plan: Continue Eliquis (2) Asthma: Comment: PFT 02/17 reversible obstruction, Code(s): J45.909 - Unspecified asthma, uncomplicated Plan: Start Breo 100 and continue albuterol as needed. Prednisone taper and Z-Simone up prescribed for asthma exacerbation. Patient follow-up in 1 month (3) DM type 2 (diabetes mellitus, type 2): Code(s): E11.9 - Type 2 diabetes mellitus without complications Plan: A1c is up to 7.7. Farxiga will be increased to 10 mg a day and ADA diet discussed with the patient (4) HTN (hypertension): Code(s): I10 - Essential (primary) hypertension Plan: Continue lisinopril and diltiazem Medications: New dapagliflozin propanediol (Farxiga) 10 mg PO DAILY 90 tabs 3RF Breo Ellipta 100-25 mcg/dose (fluticasone furoate-vilanterol) 1 inh inhalation DAILY 60 ea 2RF NS prednisone 4 tabl qd x 3days, then 3 tabl x 3 days, then 2 tabl x 3days, then 1 tabl qd x 3 days 10 mg PO DAILY 30 tabs 0RF azithromycin start on day 2 of therapy 250 mg PO DAILY 6 days 6 tabs 0RF Discontinued Farxiga (dapagliflozin propanediol) Discontinued Reason: Doctor's Order 5 mg PO DAILY 90 tabs 1RF NS Coding Level of Care Code Est Pt Level 4 (32483) Diagnoses Paroxysmal atrial fibrillation I48.0 Asthma J45.909 DM type 2 (diabetes mellitus, type 2) E11.9 HTN (hypertension) I10
== END 2023-02-21 13:20 | disposition home or self-care (01) ==
PROVIDERS: PCP Internal Medicine; Visit Provider Internal Medicine
DX: I48.0 Paroxysmal atrial fibrillation (principal); J45.909 Unspecified asthma, uncomplicated; E11.9 Type 2 diabetes mellitus without complications; I10 Essential (primary) hypertension
CPT/HCPCS: 99214

== ENCOUNTER 2023-03-14 09:10 | Outpatient (AMB) | payer MEDICARE, MEDICAID, SELFPAY ==
--- NOTE | 2023-03-14 09:12 | A.OFFPC_ITS ---
Vital Signs 03/14/23 09:13 Height 5 ft 2 in Weight 210 lb BMI 38.4 BP 128/66 Blood Pressure Location Lt brachial Position Sitting Pulse 90 Pulse Source Pulse Oximeter Pulse Oximetry (%) 95 Oxygen Delivery Method Room Air Intake Visit Reasons: 1 month follow up Intake Note: Pt is here today for 1 month follow up visit. Allergies No Known Allergies Allergy (Verified 03/14/23 09:15) Medication List - Last Reconciled 03/14/23 by Irene Martin MD albuterol sulfate 90 mcg/actuation (Ventolin HFA) 2 puffs inhalation Q6H PRN apixaban (Eliquis) 5 mg PO BID 30 days Breo Ellipta 100-25 mcg/dose (fluticasone furoate-vilanterol) 1 inh inhalation DAILY NS dapagliflozin propanediol (Farxiga) 10 mg PO DAILY diltiazem HCl (Cardizem CD) 120 mg PO DAILY levothyroxine 50 mcg PO DAILY lisinopril 10 mg PO DAILY Tobacco use date assessed: 02/21/23 HPI 1 month follow up HPI Details Patient presents for the follow-up. Asthma is better controlled on Breo. Hypertension hyperlipidemia paroxysmal AFib are stable on current medications. [facility] Medical History Paroxysmal atrial fibrillation Persistent atrial fibrillation Bacteriuria Hypothyroidism Colonoscopy refused Mammogram declined HTN (hypertension) DM type 2 (diabetes mellitus, type 2) Surgical History History of cholecystectomy Family History Father No problems noted. Mother Pre-diabetes Social History Housing: House Patient Tobacco Use Status: Never used Tobacco e-Cigarette/Vaping Use: Never Used Second Hand Smoke Exposure: No Current occupational status: retired Cognitive needs: No Hearing needs: No Vision needs: Yes Questionnaire Thrive Questionnaire Date Thrive assessed: 05/05/22 MAL-7 AMB Questionnaire MAL-7 Date MAL - 7 assessed: 05/05/22 Source: Developed by Drs. Truong Nicholas, Raiza Clark, Cesar Luis and colleagues, with an educational keenan from [employer]. Review of Systems Const All systems reviewed & are unremarkable except as noted in HPI and below Reports no additional complaints Eyes Reports no additional complaints ENT Reports no additional complaints Card Reports no additional complaints Resp Reports no additional complaints GI Reports no additional complaints Reports no additional complaints Physical exam (Primary Care) Vital Signs: Last Vital Signs Pulse 90 03/14/23 09:13 BP 128/66 03/14/23 09:13 Pulse Ox 95 03/14/23 09:13 Oxygen Delivery Method Room Air 03/14/23 09:13 BMI result Body Mass Index 38.4 Tobacco/Smoking Status: Tobacco use Status Tobacco use date assessed 02/21/23 03/14/23 09:17 Patient Tobacco Use Status Never used Tobacco 03/14/23 09:17 e-Cigarette/Vaping Use Never Used 03/14/23 09:17 Thrive Assessment: Date of Thrive Assessment Date Thrive assessed 05/05/22 03/14/23 09:17 Assessment and Plan Assessment & Plan (1) Paroxysmal atrial fibrillation: Comment: Maintaining rhythm status post cardioversion, May 2022. Feeling better with rhythm control Code(s): I48.0 - Paroxysmal atrial fibrillation Plan: Continue Eliquis and current medications (2) Hypothyroidism: Code(s): E03.9 - Hypothyroidism, unspecified Plan: Continue levothyroxine (3) HTN (hypertension): Code(s): I10 - Essential (primary) hypertension Plan: Continue current medications (4) DM type 2 (diabetes mellitus, type 2): Code(s): E11.9 - Type 2 diabetes mellitus without complications Plan: ADA diet increase physical activity weight loss discussed with the patient. She will continue Farxiga and follow-up in 2 months with a fasting labs before (5) Asthma: Comment: PFT 02/17 reversible obstruction, Code(s): J45.909 - Unspecified asthma, uncomplicated Plan: Continue Breo Orders: Orders Hemoglobin A1c 2 Months E03.9 - Hypothyroidism, unspecified, E11.9 - Type 2 diabetes mellitus without complications, I10 - Essential (primary) hypertension, I48.0 - Paroxysmal atrial fibrillation Comprehensive Met. Panel 2 Months E03.9 - Hypothyroidism, unspecified, E11.9 - Type 2 diabetes mellitus without complications, I10 - Essential (primary) hypertension, I48.0 - Paroxysmal atrial fibrillation TSH reflex Free T4 2 Months E03.9 - Hypothyroidism, unspecified, E11.9 - Type 2 diabetes mellitus without complications, I10 - Essential (primary) hypertension, I48.0 - Paroxysmal atrial fibrillation Microalbumin, Random (w Creat) 2 Months E03.9 - Hypothyroidism, unspecified, E11.9 - Type 2 diabetes mellitus without complications, I10 - Essential (primary) hypertension, I48.0 - Paroxysmal atrial fibrillation Lipid Panel 2 Months E03.9 - Hypothyroidism, unspecified, E11.9 - Type 2 diabetes mellitus without complications, I10 - Essential (primary) hypertension, I48.0 - Paroxysmal atrial fibrillation Comprehensive [place]. Panel Fast 2 Months E03.9 - Hypothyroidism, unspecified, E11.9 - Type 2 diabetes mellitus without complications, I10 - Essential (primary) hypertension, I48.0 - Paroxysmal atrial fibrillation Medications: Refilled Breo Ellipta 100-25 mcg/dose (fluticasone furoate-vilanterol) 1 inh inhalation DAILY 60 ea 4RF NS Coding Level of Care Code Est Pt Level 4 (41368) Diagnoses Paroxysmal atrial fibrillation I48.0 Hypothyroidism E03.9 HTN (hypertension) I10 DM type 2 (diabetes mellitus, type 2) E11.9 Asthma J45.909
[2023-03-14 09:13] VITALS: BP 128/66; PULSE 90; O2SAT 95; BMI 38.4
== END 2023-03-14 09:59 | disposition home or self-care (01) ==
PROVIDERS: PCP Internal Medicine; Visit Provider Internal Medicine
DX: I48.0 Paroxysmal atrial fibrillation (principal); E03.9 Hypothyroidism, unspecified; I10 Essential (primary) hypertension; E11.9 Type 2 diabetes mellitus without complications; J45.909 Unspecified asthma, uncomplicated
CPT/HCPCS: 99214

== ENCOUNTER 2023-06-17 09:38 | Outpatient (REF) | payer MEDICARE, SELFPAY ==
[2023-06-17 13:36] LABS: Estimated Average Glucose 160 mg/dL; Hemoglobin A1c % 7.2 % (<6.0)
[2023-06-17 13:51] LABS: Alanine Aminotransferase 13 U/L (0-31); Albumin Level 3.8 g/dL (3.5-5.0); Alkaline Phosphatase 61 U/L (39-117); Anion Gap 13 (12-20); Aspartate Amino Transferase 15 U/L (5-31); Bilirubin Total 0.4 mg/dL (0.0-1.0); Blood Urea Nitrogen 22 mg/dL (9-16); Calcium 9.7 mg/dL (8.4-10.2); Carbon Dioxide 27 mmol/L (22-29); Chloride 103 mmol/L (96-108); Cholesterol 169 mg/dL (<200); Estimated Glomerular Filt Rate 57; Glucose Fasting 124 mg/dL (60-99); Glucose Random 121 mg/dL (60-115); HDL Cholesterol 42 mg/dL (>40); LDL Cholesterol Calculated 110 mg/dL (<100); Potassium 4.9 mmol/L (3.3-5.1); Sodium 138 mmol/L (135-145); TSH reflex Free T4 1.85 uIU/mL (0.32-4.0); Total Protein 7.4 g/dL (6.5-8.0); Triglycerides 85 mg/dL (<150)
[2023-06-17 14:02] LABS: Creatinine Urine 96.75 mg/dL; Microalbum/Creatinine Ratio Ur 6.2 ug/mg cr (<30)
== END 2023-06-17 09:39 | disposition home or self-care (01) ==
LOC: HO.HMGCLDS 09:38
PROVIDERS: PCP Internal Medicine; Visit Provider Internal Medicine
DX: I48.0 Paroxysmal atrial fibrillation (principal); I10 Essential (primary) hypertension; E11.9 Type 2 diabetes mellitus without complications; E03.9 Hypothyroidism, unspecified
CPT/HCPCS: 36415; 80053; 80061; 82043; 82570; 83036; 84443

== ENCOUNTER 2023-06-28 09:51 | Outpatient (AMB) | payer MEDICARE, SELFPAY ==
[2023-06-28 10:05] VITALS: BP 118/78; PULSE 67; O2SAT 97; BMI 38.4
--- NOTE | 2023-06-28 10:05 | MHC.PC.OV ---
Vital Signs 06/28/23 10:05 Height 5 ft 2 in Weight 210 lb BMI 38.4 BP 118/78 Blood Pressure Location Rt brachial Position Sitting Pulse 67 Pulse Source Pulse Oximeter Pulse Oximetry (%) 97 Oxygen Delivery Method Room Air Intake Visit Reasons: 4 month fu Intake Note: Pt is here today for 4 months follow up visit. Allergies No Known Allergies Allergy (Verified 06/28/23 10:09) Medication List - Last Reconciled 06/28/23 by Irene Martin MD albuterol sulfate 90 mcg/actuation (Ventolin HFA) 2 puffs inhalation Q6H PRN apixaban (Eliquis) 5 mg PO BID 30 days Breo Ellipta 100-25 mcg/dose (fluticasone furoate-vilanterol) 1 inh inhalation DAILY NS dapagliflozin propanediol (Farxiga) 10 mg PO DAILY diltiazem HCl (Cardizem CD) 120 mg PO DAILY levothyroxine 50 mcg PO DAILY lisinopril 10 mg PO DAILY Tobacco use date assessed: 06/28/23 Fall risk assessment: No Falls in past year Last assessed Fall Risk: 06/28/23 Dental Screening Dental Screen Date: 06/28/23 Did you have a dental visit in the last 12 months?: Yes Did you have a dental problem in the last 6 months where you did not have access to dental care?: No Was dental information given to patient?: Patient has dentist HPI 4 month fu HPI Details Patient presents for the follow-up of hypertension hypothyroidism paroxysmal AFib and chronic asthma controlled on current medications [facility] Medical History Paroxysmal atrial fibrillation Persistent atrial fibrillation Bacteriuria Hypothyroidism Colonoscopy refused Mammogram declined HTN (hypertension) DM type 2 (diabetes mellitus, type 2) Surgical History History of cholecystectomy Family History Father No problems noted. Mother Pre-diabetes Social History Housing: House Patient Tobacco Use Status: Never used Tobacco e-Cigarette/Vaping Use: Never Used Second Hand Smoke Exposure: No Current occupational status: retired Cognitive needs: No Hearing needs: No Vision needs: Yes Questionnaire PHQ-9 Over the last 2 weeks, how often have you been bothered by any of the following problems? 1. Little interest or pleasure in doing things: not at all 2. Feeling down, depressed, or hopeless: not at all 3. Trouble falling or staying asleep, or sleeping too much: not at all 4. Feeling tired or having little energy: not at all 5. Poor appetite or overeating: not at all 6. Feeling bad about yourself - or that you are a failure or have let yourself or your family down: not at all 7. Trouble concentrating on things, such as reading the newspaper or watching television: not at all 8. Moving or speaking so slowly that other people could have noticed. Or the opposite - being so fidgety or restless that you have been moving around a lot more than usual: not at all 9. Thoughts that you would be better off or of hurting yourself in some way: not at all Total score: 0 Depression Screening Interpretation: Negative Depression Screening Done: Yes Source: Developed by Drs. Truong Nicholas, Raiza Clark, Cesar Luis and colleagues, with an educational keenan from [employer]. Thrive Questionnaire Date Thrive assessed: 06/28/23 I am a: Patient What is your living situation today?: I have a steady place to live Within the past 12 months, did the food you bought not last and you didn't have the money to get more?: Never true Within the past 12 months, did you worry whether your food would run out before you got money to buy more?: Never true Do you have trouble paying for medicines?: No Do you have trouble getting transportation to medical appointments?: No Do you have trouble paying your heating and electricity bill?: No Do you have trouble taking care of your child, family member or friend?: No Do you have trouble with day-to-day activities such as bathing, preparing meals, shopping, managing finances, etc.?: No Are you currently unemployed and looking for a job?: No Are you interested in more education?: No Please select the resources that you would like help with: None Currently or been in a relationship where the following occur: no concerns reported THRIVE Score: 0 AUDIT C Alcohol Use Questionnaire (AUDIT-C) 1. How often do you have a drink containing alcohol?: Never 3. How often do you have six or more drinks on one occasion?: Never Total Score: 0 MAL-7 AMB Questionnaire MAL-7 Date MAL - 7 assessed: 06/28/23 Feeling nervous, anxious, or on edge: 0 = Not at all Not being able to stop or control worryin = Not at all Worrying too much about different things: 0 = Not at all Trouble relaxin = Not at all Being so restless that it is hard to sit still: 0 = Not at all Becoming easily annoyed or irritable: 0 = Not at all Feeling afraid as if something awful might happen: 0 = Not at all Total MAL-7 score (0-4 normal; 5-9 mild; 10-14 moderate; 15-21 severe): 0 Source: Developed by Drs. Truong Nicholas, Raiza Clark, Cesar Luis and colleagues, with an educational keenan from [employer]. ACT Questionnaire In the past 4 weeks, how much of the time did your asthma keep you from getting as much done at work, school or at home?: None of the time During the past 4 weeks, how often have you had shortness of breath?: Not at all During the past 4 weeks, how often did your asthma symptoms wake you up at night or earlier than usual in the morning?: Not at all During the past 4 weeks, how often have you had to use your rescue inhaler or nebulizer medication?: Once a week or less How would you rate your asthma control during the past 4 weeks?: Well controlled ACT Interpretation: Negative Score: 23 Review of Systems Const All systems reviewed & are unremarkable except as noted in HPI and below Reports no additional complaints Eyes Reports no additional complaints ENT Reports no additional complaints Card Reports no additional complaints Resp Reports no additional complaints GI Reports no additional complaints Reports no additional complaints Physical exam (Primary Care) Vital Signs: Last Vital Signs Pulse 67 06/28/23 10:05 BP 118/78 06/28/23 10:05 Pulse Ox 97 06/28/23 10:05 Oxygen Delivery Method Room Air 06/28/23 10:05 BMI result Body Mass Index 38.4 Tobacco/Smoking Status: Tobacco use Status Tobacco use date assessed 06/28/23 06/28/23 10:14 Patient Tobacco Use Status Never used Tobacco 06/28/23 10:14 e-Cigarette/Vaping Use Never Used 06/28/23 10:05 PHQ-9: PHQ-9 Score PHQ-9: Total score 0 06/28/23 12:26 Depression Screening Interpretation: Negative Thrive Assessment: Date of Thrive Assessment Date Thrive assessed 06/28/23 06/28/23 10:14 Currently or been in a relationship where the following occur: no concerns reported Const General: no acute distress HENMT Ears: hearing grossly normal bilaterally Throat: Yes posterior oropharynx normal Neck Neck: Yes supple Resp Effort & Inspection: normal respiratory effort Auscultation: clear to auscultation bilaterally Cardio Rhythm: regular rhythm Heart sounds: S1 normal heart sound present and S2 normal heart sound present GI Inspection: Yes normal to inspection Palpation (GI): Soft to palpation Percussion: Yes normal to percussion Auscultation: normal bowel sounds Assessment and Plan Assessment & Plan (1) Paroxysmal atrial fibrillation: Comment: Maintaining rhythm status post cardioversion, May 2022. Feeling better with rhythm control Code(s): I48.0 - Paroxysmal atrial fibrillation Plan: Continue Eliquis and Cardizem (2) DM type 2 (diabetes mellitus, type 2): Code(s): E11.9 - Type 2 diabetes mellitus without complications Plan: A1c is down to 7.2, ADA diet regular physical activity discussed with the patient. Continue Farxiga (3) HTN (hypertension): Code(s): I10 - Essential (primary) hypertension Plan: Continue current medications (4) Hypothyroidism: Code(s): E03.9 - Hypothyroidism, unspecified Plan: Continue levothyroxine follow-up in 4 months with a fasting labs before Orders: Orders Comprehensive [place]. Panel Fast 4 Months E03.9 - Hypothyroidism, unspecified, E11.9 - Type 2 diabetes mellitus without complications, I10 - Essential (primary) hypertension, I48.0 - Paroxysmal atrial fibrillation Lipid Panel 4 Months E03.9 - Hypothyroidism, unspecified, E11.9 - Type 2 diabetes mellitus without complications, I10 - Essential (primary) hypertension, I48.0 - Paroxysmal atrial fibrillation Vitamin B12 and Folate 4 Months E03.9 - Hypothyroidism, unspecified, E11.9 - Type 2 diabetes mellitus without complications, I10 - Essential (primary) hypertension, I48.0 - Paroxysmal atrial fibrillation Hemoglobin A1c 4 Months E03.9 - Hypothyroidism, unspecified, E11.9 - Type 2 diabetes mellitus without complications, I10 - Essential (primary) hypertension, I48.0 - Paroxysmal atrial fibrillation Complete Blood Count Auto Diff 4 Months E03.9 - Hypothyroidism, unspecified, E11.9 - Type 2 diabetes mellitus without complications, I10 - Essential (primary) hypertension, I48.0 - Paroxysmal atrial fibrillation TSH reflex Free T4 4 Months E03.9 - Hypothyroidism, unspecified, E11.9 - Type 2 diabetes mellitus without complications, I10 - Essential (primary) hypertension, I48.0 - Paroxysmal atrial fibrillation IRON PROFILE 4 Months E03.9 - Hypothyroidism, unspecified, E11.9 - Type 2 diabetes mellitus without complications, I10 - Essential (primary) hypertension, I48.0 - Paroxysmal atrial fibrillation Medications: Refilled levothyroxine 50 mcg PO DAILY 90 tabs 3RF apixaban (Eliquis) 5 mg PO BID 180 tabs 3RF 30 days Coding Level of Care Code Est Pt Level 4 (43653) Diagnoses Paroxysmal atrial fibrillation I48.0 DM type 2 (diabetes mellitus, type 2) E11.9 HTN (hypertension) I10 Hypothyroidism E03.9
== END 2023-06-28 11:01 | disposition home or self-care (01) ==
PROVIDERS: PCP Internal Medicine; Visit Provider Internal Medicine
DX: I48.0 Paroxysmal atrial fibrillation (principal); E11.9 Type 2 diabetes mellitus without complications; I10 Essential (primary) hypertension; E03.9 Hypothyroidism, unspecified
CPT/HCPCS: 99214

== ENCOUNTER 2023-10-18 10:38 | Outpatient (REF) | payer MEDICARE, SELFPAY ==
[2023-10-18 13:14] LABS: MANUAL DIFF FLAG NO
[2023-10-18 13:27] LABS: Basophils Percent Auto 0.3 % (0-2); Eosinophils Absolute Auto 0.2 X10*3/uL (0.0-0.4); Eosinophils Percent Auto 3.8 % (0-4); Hematocrit 40.6 % (37.0-47.0); Imm Gran Abs Auto 0.01 X10*3/uL (0.00-0.03); Imm Gran Pct Auto 0.3 % (0.0-0.4); Lymphocytes Absolute Auto 1.3 X10*3/uL (1.2-4.9); Lymphocytes Percent Auto 32.5 % (20-40); Mean Corpuscular Hemoglobin 27.1 pg (27.0-33.0); Mean Corpuscular Volume 84.6 fL (80.0-98.0); Mean Platelet Volume 11.4 fL (9.4-12.3); Monocytes Absolute Auto 0.4 X10*3/uL (0.1-1.2); Monocytes Percent Auto 8.9 % (2-11); Neutrophils Absolute Auto 2.1 x10*3/uL (2.0-8.3); Neutrophils Percent Auto 54.2 % (45-73); Platelet Count 115 X10*3/uL (160-400); Red Cell Distribution Width 13.6 % (11.0-16.0); White Blood Count 3.9 X10*3/uL (4.8-10.8)
[2023-10-18 13:29] LABS: Estimated Average Glucose 154 mg/dL
[2023-10-18 13:37] LABS: Alanine Aminotransferase 10 U/L (0-31); Albumin Level 3.8 g/dL (3.5-5.0); Alkaline Phosphatase 57 U/L (39-117); Anion Gap 15 (12-20); Aspartate Amino Transferase 14 U/L (5-31); Bilirubin Total 0.5 mg/dL (0.0-1.0); Blood Urea Nitrogen 22 mg/dL (9-16); Calcium 9.6 mg/dL (8.4-10.2); Carbon Dioxide 22 mmol/L (22-29); Chloride 109 mmol/L (96-108); Cholesterol 164 mg/dL (<200); Estimated Glomerular Filt Rate > 60; Glucose Fasting 108 mg/dL (60-99); HDL Cholesterol 38 mg/dL (>40); Iron 59 mcg/dL (30-160); LDL Cholesterol Calculated 105 mg/dL (<100); Percent Iron Saturation 27 % (15-50); Potassium 4.5 mmol/L (3.3-5.1); Sodium 141 mmol/L (135-145); Total Iron Binding Capacity 221 mcg/dL (228-428); Total Protein 7.6 g/dL (6.5-8.0); Triglycerides 107 mg/dL (<150); Unsaturated Iron Binding 162 ug/dL
[2023-10-18 14:05] LABS: Vitamin B12 494 pg/mL (200-900)
[2023-10-18 14:10] LABS: TSH reflex Free T4 1.73 uIU/mL (0.32-4.0)
== END 2023-10-18 10:39 | disposition home or self-care (01) ==
LOC: HO.HMGCLDS 10:38
PROVIDERS: PCP Internal Medicine; Visit Provider Internal Medicine
DX: I48.0 Paroxysmal atrial fibrillation (principal); E11.9 Type 2 diabetes mellitus without complications; I10 Essential (primary) hypertension; E03.9 Hypothyroidism, unspecified
CPT/HCPCS: 36415; 80053; 80061; 82607; 82746; 83036; 83540; 84443; 85025

== ENCOUNTER 2023-10-24 11:58 | Outpatient (AMB) | payer MEDICARE, MEDICAID, SELFPAY ==
--- NOTE | 2023-10-24 12:00 | AM.OFFVISMDC ---
Intake Vital Signs 10/24/23 12:07 Height 5 ft 2 in Weight 210 lb BMI 38.4 BP 124/72 Blood Pressure Location Lt brachial Position Sitting Pulse 62 Pulse Source Pulse Oximeter Pulse Oximetry (%) 96 Oxygen Delivery Method Room Air Intake Visit Reasons: V G0439 Allergies No Known Allergies Allergy (Verified 10/24/23 12:15) Medication List - Last Reconciled 10/24/23 by Irene Martin MD albuterol sulfate 90 mcg/actuation (Ventolin HFA) 2 puffs inhalation Q6H PRN apixaban (Eliquis) 5 mg PO BID 30 days Breo Ellipta 100-25 mcg/dose (fluticasone furoate-vilanterol) 1 inh inhalation DAILY NS dapagliflozin propanediol (Farxiga) 10 mg PO DAILY diltiazem HCl CD (Cardizem CD) 120 mg PO DAILY fluconazole 150 mg PO Q3D 2 doses levothyroxine 50 mcg PO DAILY lisinopril 10 mg PO DAILY HPI [facility] [[email or web address]] G0439 HPI Details Initiated the conversation about Advanced Directives. Advanced Directives help? patients prepare for current and future decisions about their medical treatment? and place of care. Discussed with patient that it is a process where a patients? current condition and prognosis are reviewed, their wishes for information? regarding their illness are elicited, and likely medical dilemmas are presented? and options discussed. The form can be amended as needed, reviewed yearly and? make changes as needed IPPE/AWV ? year old presents? for her ? Annual? Wellness Visit, initial visit.? Medical / Social History Reviewed? Past Medical History ?Yes? . ? [place]? of Care / Care Team list updated ?Yes . ? Surgical/Hospitalization? History ?Yes . ? Current Medications? (including OTC and supplements) ?Yes . ? Family History ?Yes? . ? Tobacco? Control form ?Yes . ? AUDIT-C (Alcohol use) form? ?Yes . ? Illicit drug use in Social? History ?Yes . ? Current diagnosis of? depression? ?No ? Appropriate PHQ2/PHQ9? completed ?Yes . ? Data entered by ?Medical? New Business Clerk and reviewed by provider ? Fall Risk ? Fall? History? Have you had any falls with? injury in the past year? ?No . ? Have you had two or more? falls in the past year? ?No . ? Fall Risk Assessment: ?No? falls in the past year . ? HRA filled out by? the patient, reviewed by Provider and scanned. ? IPPE/AWV ? Balance? [place]? ?Yes . ? Tandem? walk ?Yes . ? Walk and? Turn ?Yes . ? Rise from? sit to stand ?Yes . ?Vision? Corrective? lens ?Yes ? Vision? screen ? Up-to-date, has an appointment [] for vision? screening and glaucoma screening ?Hearing? Whisper? test ?pass .? Initiated the conversation about Advanced Directives. Advanced Directives help? patients prepare for current and future decisions about their medical treatment? and place of care. Discussed with patient that it is a process where a patients? current condition and prognosis are reviewed, their wishes for information? regarding their illness are elicited, and likely medical dilemmas are presented? and options discussed. The form can be amended as needed, reviewed yearly and? make changes as needed Written? Plan?Completed. See Patient? Documents. [facility] Medical History Paroxysmal atrial fibrillation Persistent atrial fibrillation Bacteriuria Hypothyroidism Colonoscopy refused Mammogram declined HTN (hypertension) DM type 2 (diabetes mellitus, type 2) Surgical History History of cholecystectomy Family History Father No problems noted. Mother Pre-diabetes Social History Housing: House Patient Tobacco Use Status: Never used Tobacco e-Cigarette/Vaping Use: Never Used Second Hand Smoke Exposure: No Current occupational status: retired Cognitive needs: No Hearing needs: No Vision needs: Yes Questionnaire Medicare Wellness Checkup [age] What gender do you identify with?: female During the past 4 weeks, how much have you been bothered by emotional problems such as feeling anxious, depressed, irritable, sad or downhearted, and blue?: not at all During the past 4 weeks, has your physical & emotional health limited your social activities with family, friends, neighbors, or groups?: not at all During the past 4 weeks, how much bodily pain have you generally had?: no pain During the past 4 weeks, was someone available to help you if you needed & wanted help?: yes, as much as I wanted During the past 4 weeks, what was the hardest physical activity you could do for at least 2 minutes?: moderate Can you get to places out of walking distance without help? (For eg., can you travel alone on buses, taxis or drive your car?): No Can you go shopping for groceries or clothes without someone's help?: Yes Can you prepare your own meals?: Yes Can you do your housework without help?: Yes Because of any health problems, do you need the help of another person with your personal care needs such as eating, bathing, dressing or getting around the house?: No Can you handle your own money without help?: Yes During the past 4 weeks, how would you rate your health in general?: very good During the past 4 weeks how have things been going for you?: very well; could hardly better Are you having difficulties driving your car?: not applicable, I don't use a car Do you always fasten your seat belt when you are in a car?: yes, usually During past 4 weeks, have you been bothered by the following: never: Falling or dizzy when standing up, Sexual problems?, Trouble eating well?, Teeth or denture problems?, Problems using the telephone? and Tiredness or fatigue? Have you fallen 2 or more times in the past year?: No Are you afraid of falling?: No Are you a smoker?: no During the past 4 weeks, how many drinks of wine, beer, or other alcoholic beverages did you have?: no alcohol at all Do you exercise for about 20 minutes 3 or more times a week?: no, I usually do not exercise this much Have you been given information to help with the following?: no: Hazards in your house that might hurt you? and no: Keeping track of your medications? How often do you have trouble taking medicines the way you have been told to take them?: I always take medicine as prescribed How confident are you that you can control & manage most of your health problems?: very confident What is your race?: White Mini Mental State Exam (MMSE) Orientation What is the (year) (season) (date) (day) (month)?: year, season, date, day and month Where are we (state) (county) (town or city) (hospital) (floor)?: state, county, town or city, hospital/clinic and floor Registration Name of 3 unrelated objects clearly and slowly, then ask patient to repeat all 3 of them. (1st repeat determines score. Make sure they can repeat all three): object 1, object 2 and object 3 Attention & Calculation (CHOOSE ONE) Spell WORLD backwards (DLROW): 5 letters Recall Ask patient to repeat the 3 items from question #3.: object 1, object 2 and object 3 Language Show patient a wristwatch & ask what it is. Repeat for pencil.: watch and pencil Ask the patient to repeat the phrase 'No ifs, ands, or buts' after you.: correct Ask the patient to 'take a piece of paper with their right hand' 'fold paper in half' 'place paper on floor': take paper in right hand, fold paper in half and place paper on floor Print the sentence 'CLOSE YOUR EYES' on a piece. If patient actually closes eyes then score.: followed written direction Give patient a blank piece of paper & ask to write a sentence. Score if it contains a noun & verb.: sentence contains subject and verb Score Score: 29 Activity of Daily Living Bathing - sponge bath, tub bath or shower: receives no assistance (gets in/out by self, if usual bathing means Dressing - getting clothes from closets & drawers, including inner/outer garments & fasteners.: gets clothes & gets completely dressed without help Toileting - going to the 'toilet room' for urine/bowel elimination & cleaning self/arranging clothes: goes to toilet room, cleans self, arranges clothes without help Transfer: moves in & out of bed and chair without help (may use support object) Continence: controls urination/bowel movements completely by self Feeding: feeds self without help Total Score: 0 PHQ-9 Over the last 2 weeks, how often have you been bothered by any of the following problems? 1. Little interest or pleasure in doing things: not at all 2. Feeling down, depressed, or hopeless: not at all 3. Trouble falling or staying asleep, or sleeping too much: not at all 4. Feeling tired or having little energy: not at all 5. Poor appetite or overeating: not at all 6. Feeling bad about yourself - or that you are a failure or have let yourself or your family down: not at all 7. Trouble concentrating on things, such as reading the newspaper or watching television: not at all 8. Moving or speaking so slowly that other people could have noticed. Or the opposite - being so fidgety or restless that you have been moving around a lot more than usual: not at all 9. Thoughts that you would be better off or of hurting yourself in some way: not at all Total score: 0 Depression Screening Interpretation: Negative Depression Screening Done: Yes Source: Developed by Drs. Truong Nicholas, Raiza Clark, Cesar Luis and colleagues, with an educational keenan from [employer]. Review of Systems Const All systems reviewed & are unremarkable except as noted in HPI and below Eyes Reports no additional complaints ENT Reports no additional complaints Card Reports no additional complaints Resp Reports no additional complaints GI Reports no additional complaints Reports no additional complaints Physical Exam Vital Signs: Last Vital Signs Pulse 62 10/24/23 12:07 BP 124/72 10/24/23 12:07 Pulse Ox 96 10/24/23 12:07 Oxygen Delivery Method Room Air 10/24/23 12:07 BMI result Body Mass Index 38.4 Const General: no acute distress HEENT Head: Yes normal to inspection General nose exam: Normal external nose present Eyes General: appearance normal, both eyes and all related structures Neck Neck: Yes no lymphadenopathy and Yes supple Resp Effort & Inspection: normal respiratory effort Auscultation: clear to auscultation bilaterally Cardio Rhythm: regular rhythm Heart sounds: S1 normal heart sound present and S2 normal heart sound present GI Inspection: Yes normal to inspection Palpation (GI): Soft to palpation Percussion: Yes normal to percussion Auscultation: normal bowel sounds Extrem General: Yes no clubbing, cyanosis or edema Assessment & Plan Assessment & Plan (1) DM type 2 (diabetes mellitus, type 2): Code(s): E11.9 - Type 2 diabetes mellitus without complications Plan: A1c 7.0, continue ADA diet Farxiga increase physical activity weight loss, follow-up in 4 months (2) HTN (hypertension): Code(s): I10 - Essential (primary) hypertension Plan: Continue current medications (3) Hypothyroidism: Code(s): E03.9 - Hypothyroidism, unspecified Plan: Continue levothyroxine (4) Paroxysmal atrial fibrillation: Comment: Maintaining rhythm status post cardioversion, May 2022. Feeling better with rhythm control Code(s): I48.0 - Paroxysmal atrial fibrillation Plan: Continue Eliquis Orders: Orders Comprehensive [place]. Panel Fast 4 Months E03.9 - Hypothyroidism, unspecified, E11.9 - Type 2 diabetes mellitus without complications, I10 - Essential (primary) hypertension, I48.0 - Paroxysmal atrial fibrillation Hemoglobin A1c 4 Months E03.9 - Hypothyroidism, unspecified, E11.9 - Type 2 diabetes mellitus without complications, I10 - Essential (primary) hypertension, I48.0 - Paroxysmal atrial fibrillation Complete Blood Count Auto Diff 4 Months E03.9 - Hypothyroidism, unspecified, E11.9 - Type 2 diabetes mellitus without complications, I10 - Essential (primary) hypertension, I48.0 - Paroxysmal atrial fibrillation Microalbumin, Random (w Creat) 4 Months E03.9 - Hypothyroidism, unspecified, E11.9 - Type 2 diabetes mellitus without complications, I10 - Essential (primary) hypertension, I48.0 - Paroxysmal atrial fibrillation Lipid Panel 4 Months E03.9 - Hypothyroidism, unspecified, E11.9 - Type 2 diabetes mellitus without complications, I10 - Essential (primary) hypertension, I48.0 - Paroxysmal atrial fibrillation Medications: Refilled fluconazole 150 mg PO Q3D 2 tabs 0RF Quality Reporting (2019) Depression/Bipolar (159/160/161/177) PHQ-9: Total score: 0 Coding Level of Care Code Medicare Subsequent (G0439) Diagnoses DM type 2 (diabetes mellitus, type 2) E11.9 HTN (hypertension) I10 Hypothyroidism E03.9 Paroxysmal atrial fibrillation I48.0 CPT Codes Advance Care Planning - Advance Care Planning discussion: On file, no changes ([id number]) Advance Care Planning - Time spent: 1-15 minutes, on File ([id number]) Advance Care Planning Advance Care Planning discussion: On file, no changes Forms completed: Health Care Proxy Time spent: 1-15 minutes, on File
[2023-10-24 12:07] VITALS: BP 124/72; PULSE 62; O2SAT 96; BMI 38.4
== END 2023-10-24 12:56 | disposition home or self-care (01) ==
LOC: HO.HMGC 11:58
PROVIDERS: PCP Internal Medicine; Visit Provider Internal Medicine
DX: Z00.00 Encounter for general adult medical examination without abnormal findings (principal); E11.9 Type 2 diabetes mellitus without complications; I48.0 Paroxysmal atrial fibrillation; I10 Essential (primary) hypertension; E03.9 Hypothyroidism, unspecified
CPT/HCPCS: 1123F; G0439

== ENCOUNTER → 2024-01-23 09:48 | Outpatient (REF) | payer MEDICARE, MEDICAID, SELFPAY ==
--- NOTE | 2024-01-23 09:53 | CA_ITS ---
Transthoracic Echocardiogram Patient (Last, First, Middle): Anayeli Ortiz, Gender: Female Date of : 1945 Age: 78 Procedure Date: 01/23/2024 Procedure Type: Transthoracic Echocardiogram Location: OP Height: 162.56 cm Weight: 86.18 kg BSA: 1.91 m2 Heart Rate: 58 bpm BP: 134 / 80 mmHg Vp Legal Affairs: Referring MD: Zoran Mazariegos MD Symptoms: I48.0 - Paroxysmal atrial fibrillation Study Quality: Good ECG Rhythm: Sinus Conclusions: - The left ventricular systolic function is normal. The calculated ejection fraction is 67% by biplane method. - No obvious valvular pathology seen on this study. Findings Left Ventricle Normal left ventricular cavity size. There is mildly increased left ventricular wall thickness. The left ventricular systolic function is normal. The calculated ejection fraction is 67% by biplane method. There is no evidence of regional wall motion abnormalities. Diastolic function is normal for age. Right Ventricle Normal right ventricular cavity size and systolic function. Atria Both atria are normal in size. Aortic Valve There is a normal trileaflet aortic valve. There is no aortic valve stenosis. There is no aortic valve regurgitation. Mitral Valve The mitral valve appears normal. There is no mitral valve regurgitation. There is no mitral valve stenosis. Pulmonic Valve The pulmonic valve is likely normal. Tricuspid Valve There is trace tricuspid valve regurgitation. There is no evidence of pulmonary hypertension. Great Vessels The asc aorta is normal in size. Venous The inferior vena cava is normal in size and collapses greater than 50% with inspiration. Pericardium/Pleural There is no evidence of pericardial effusion. Prior Study Comparison No significant change compared to prior study dated: 07/29/2022. Recommendations, Care & Conclusions No obvious valvular pathology seen on this study. Measurements 2D Linear Measurements IVSd: 1.21 0.6-0.9/0.6-1.0 cm LVIDd: 4.82 3.9-5.3/4.2-5.9 cm LVIDd Index: 2.52 2.4-3.2/2.2-3.1 cm/m2 LVIDs: 3.07 2.0-3.6 cm LVPWd: 1.20 0.7-1.1 cm Ao Root: 3.20 2.1-3.5 cm LA Diam: 3.50 2.7-3.8/3.0-4.0 cm LAIDs Index: 1.83 1.5-2.3 cm/m2 LV Mass: 276.59 67-162/88-224 g LV Mass Index: 144.81 43-95/49-115 g/m2 LVOT Diam: 2.20 3.0+(-)1.3 cm 2D Systolic Function EF 4C: 67.20 >55% EF 2C: 68.40 >55% EF BiP: 66.90 >55% Mitral Valve MV Pk E: 0.67 MV PK A: 0.99 MV Decel Time: 300.00 E/A: 0.70 E'Lateral: 7.18 E'Medial: 5.11 E/E' Med: 13.20 E/E' Lat: 9.40 PHT: 88.00 MVA PHT: 2.50 Decel Starr: 2.24 Aortic Valve AoV Pk Osbaldo: 1.33 AoV Pk Grad: 7.00 LVOT LVOT Pk Osbaldo: 1.00 LVOT Mn Osbaldo: 0.70 LVOT VTI: 0.28 LVOT Pk Grad: 4.00 LVOT Mn Grad: 3.00 LVOT Diam: 2.20 LVOT Area: 3.80 Diastolic Function MV Pk E: 0.67 MV Pk A: 0.99 E/A: 0.70 E'Medial: 5.11 E/E' Med: 13.20 E' Laterial: 7.18 E/E' Lat: 9.40 Right Ventricle TAPSE (mm): 25.00 TVS' Osbaldo: 10.00 Tricuspid Valve TR Pk Osbaldo: 1.69 TR Pk Grad: 11.00 RA Press: 3.00 RVSP: 14.00 Great Vessels Aorta Ao Root-2D: 3.20 2.0-3.7 cm Ao Asc: 3.30 2.1-3.4 cm Pulmonary Valve PV Pk Osbaldo: 0.90 Peak PV Grad: 3.00 Updated in Other Vendor System with Status of Final Cricket Glaser MD electronically signed on 01/23/2024 11:26:10 AM with status of Final
== END ==
LOC: HO.CARD 09:48
PROVIDERS: Visit Provider Internal Medicine Cardiovascular Disease
DX: I48.0 Paroxysmal atrial fibrillation (principal)
CPT/HCPCS: 93306

== ENCOUNTER → 2024-01-23 09:53 | Outpatient (BNV) | payer MEDICARE, MEDICAID, SELFPAY | PROVIDERS: Visit Provider Internal Medicine | DX: I48.0 Paroxysmal atrial fibrillation (principal) | CPT/HCPCS: 93306 ==

== ENCOUNTER 2024-01-31 14:48 | Outpatient (AMB) | payer MEDICARE, MEDICAID, SELFPAY ==
[2024-01-31 15:08] VITALS: BP 128/60; PULSE 76; BMI 38.4
--- NOTE | 2024-01-31 15:08 | MHC.OFFVIS ---
Vital Signs 01/31/24 15:08 Height 5 ft 2 in Weight 209 lb 14.081 oz BMI 38.4 BP 128/60 Blood Pressure Location Lt brachial Position Sitting Pulse 76 Intake Visit Reasons: 1 yr f/up echo Intake Note: 1yr f/u. Pt feeling good Guest Relations Receptionist Required: Yes Guest Relations Receptionist Services: Guest Relations Receptionist Offered & Declined Guest Relations Receptionist Name: Stanton son in law Accompanied by: Other Relationship Allergies No Known Allergies Allergy (Verified 10/24/23 12:15) Medication List - Last Reconciled 01/31/24 by Zoran Mazariegos MD albuterol sulfate 90 mcg/actuation (Ventolin HFA) 2 puffs inhalation Q6H PRN apixaban (Eliquis) 5 mg PO BID 30 days Breo Ellipta 100-25 mcg/dose (fluticasone furoate-vilanterol) 1 inh inhalation DAILY NS dapagliflozin propanediol (Farxiga) 10 mg PO DAILY diltiazem HCl CD (Cardizem CD) 120 mg PO DAILY levothyroxine 50 mcg PO DAILY lisinopril 10 mg PO DAILY HPI Comments Details: Anayeli comes for follow-up. She is accompanied by her son-in-law who acts as primary mill roller for her. Patient says she has been doing well since I saw her last year. She is not having any symptoms from cardiac perspective. She remains active and functional without any symptoms exertional shortness of breath and she says actually this has improved over the last year. Denies any orthopnea, PND. No prolonged palpitation irregular heartbeat. No lightheadedness, syncope. Takes all her medications without any issues. Recent echo shows normal LV ejection fraction 67% without any significant other abnormalities [facility] Medical History Paroxysmal atrial fibrillation Persistent atrial fibrillation Bacteriuria Hypothyroidism Colonoscopy refused Mammogram declined HTN (hypertension) DM type 2 (diabetes mellitus, type 2) Surgical History History of cholecystectomy Family History Father No problems noted. Mother Pre-diabetes Social History Housing: House Patient Tobacco Use Status: Never used Tobacco e-Cigarette/Vaping Use: Never Used Second Hand Smoke Exposure: No Current occupational status: retired Cognitive needs: No Hearing needs: No Vision needs: Yes Review of Systems Const Denies chills, Denies fatigue, Denies fever(s), Denies weight gain and Denies weight loss ENT Denies dizziness Card Denies chest pain, Denies leg edema, Denies lightheadedness, Denies palpitations, Denies dyspnea on exertion, Denies orthopnea and Denies other Resp Denies cough and Denies dyspnea on exertion GI Denies hematochezia and Denies change in stool character Musc Denies abnormal gait, Denies muscle weakness, Denies numbness, Denies radiating pain into limb and Denies tingling Neuro Denies Abnormal speech present, Denies abnormal gait, Denies dizziness, Denies numbness and Denies tingling Endo Denies fatigue and Denies palpitations Physical Exam Vital Signs: Last Vital Signs Pulse 76 01/31/24 15:08 BP 128/60 01/31/24 15:08 BMI result Body Mass Index 38.4 Const General: cooperative, comfortable, no acute distress, alert and awake Nutritional Appearance: obese Orientation/consciousness: patient oriented x3 Limitations: no limitations Neck Neck: Yes trachea midline, Yes supple and Yes no JVD Resp Effort & Inspection: normal respiratory effort Auscultation: no rales, no wheezes and diminished lung sounds Cardio Jugular venous distension: no JVD Palpation: normal PMI Rate: regular rate Rhythm: regular rhythm Heart sounds: S1 normal heart sound present, S2 normal heart sound present, no click, no gallops and no murmurs GI Inspection: Yes obesity Skin General skin exam: no rashes or lesions noted Neuro General: patient oriented x3 Speech: No Abnormal speech present Extrem General: Yes no clubbing, cyanosis or edema Office Procedures EKG Details: EKG shows normal sinus rhythm with left axis deviation with low-voltage QRS most likely due to lead placement and body habitus with poor R-wave progression most likely due to lead placement [id number], Complete Assessment & Plan Assessment & Plan (1) Paroxysmal atrial fibrillation: Comment: Maintaining rhythm status post cardioversion, May 2022. Feeling better with rhythm control Code(s): I48.0 - Paroxysmal atrial fibrillation Category: Medical Plan: Paroxysmal atrial fibrillation status post cardioversion maintaining rhythm. She has done extremely well with rhythm control approach with significantly improved quality of life and functionality. Continue rhythm control approach. No indication for antiarrhythmic drug therapy at this point time. Continue Cardizem therapy. Avoidance of stimulants. Continue full oral anticoagulation, currently on Eliquis 5 mg b.i.d.. CHADSVASc score of 5. Semi annual renal function test is recommended. Will follow up in the clinic in 1 year's time, sooner p.r.n.. Thank you for allowing me to partake in his Coding Level of Care Code Est Pt Level 4 (80409) Complex EM visit Add On G2211 Diagnoses Paroxysmal atrial fibrillation I48.0 CPT Codes EKG - CPT: 74884-[id number], Complete ([id number])
== END 2024-01-31 15:48 | disposition home or self-care (01) ==
PROVIDERS: PCP Internal Medicine; Visit Provider Internal Medicine Cardiovascular Disease
DX: I48.0 Paroxysmal atrial fibrillation (principal)
CPT/HCPCS: 93010; 99214; G2211

== ENCOUNTER → 2024-01-31 14:48 | Outpatient (BNVA) | payer MEDICARE, MEDICAID, SELFPAY | PROVIDERS: PCP Internal Medicine; Visit Provider Internal Medicine Cardiovascular Disease | DX: I48.0 Paroxysmal atrial fibrillation (principal) | CPT/HCPCS: 93005; 99212 ==

== ENCOUNTER 2024-02-13 10:38 | Outpatient (REF) | payer MEDICARE, MEDICAID, SELFPAY ==
[2024-02-13 13:17] LABS: MANUAL DIFF FLAG NO
[2024-02-13 13:31] LABS: Basophils Percent Auto 0.5 % (0-2); Eosinophils Absolute Auto 0.2 X10*3/uL (0.0-0.4); Eosinophils Percent Auto 4.4 % (0-4); Hematocrit 40.9 % (37.0-47.0); Hemoglobin 13.5 g/dl (12.0-16.0); Imm Gran Abs Auto 0.02 X10*3/uL (0.00-0.03); Imm Gran Pct Auto 0.5 % (0.0-0.4); Lymphocytes Absolute Auto 1.3 X10*3/uL (1.2-4.9); Lymphocytes Percent Auto 32.4 % (20-40); Mean Corpuscular Hemoglobin 27.8 pg (27.0-33.0); Mean Corpuscular Volume 84.2 fL (80.0-98.0); Monocytes Absolute Auto 0.4 X10*3/uL (0.1-1.2); Monocytes Percent Auto 8.5 % (2-11); Neutrophils Absolute Auto 2.2 x10*3/uL (2.0-8.3); Neutrophils Percent Auto 53.7 % (45-73); Platelet Count 116 X10*3/uL (160-400); Red Blood Count 4.86 X10*6/uL (4.20-5.50); Red Cell Distribution Width 13.5 % (11.0-16.0); White Blood Count 4.1 X10*3/uL (4.8-10.8)
[2024-02-13 13:41] LABS: Estimated Average Glucose 160 mg/dL; Hemoglobin A1C 195.8861 umol/L; Hemoglobin A1c % 7.2 % (<6.0); Total Hemoglobin (HGBA1C) 3567.6725 umol/L
[2024-02-13 14:07] LABS: Alanine Aminotransferase 12 U/L (0-31); Albumin Level 3.9 g/dL (3.5-5.0); Alkaline Phosphatase 62 U/L (39-117); Anion Gap 11 (12-20); Aspartate Amino Transferase 20 U/L (5-31); Bilirubin Total 0.5 mg/dL (0.0-1.0); Blood Urea Nitrogen 16 mg/dL (9-16); Calcium 9.4 mg/dL (8.4-10.2); Carbon Dioxide 27 mmol/L (22-29); Chloride 107 mmol/L (96-108); Cholesterol 174 mg/dL (<200); Estimated Glomerular Filt Rate 59; Glucose Fasting 112 mg/dL (60-99); HDL Cholesterol 40 mg/dL (>40); LDL Cholesterol Calculated 116 mg/dL (<100); Potassium 4.6 mmol/L (3.3-5.1); Sodium 140 mmol/L (135-145); Total Protein 7.5 g/dL (6.5-8.0); Triglycerides 91 mg/dL (<150)
[2024-02-13 14:08] LABS: Creatinine Urine 81.94 mg/dL; Microalbumin Urine < 5.0 mg/L
== END 2024-02-13 10:39 | disposition home or self-care (01) ==
LOC: HO.HMGCLDS 10:38
PROVIDERS: PCP Internal Medicine; Visit Provider Internal Medicine
DX: I48.0 Paroxysmal atrial fibrillation (principal); I10 Essential (primary) hypertension; E11.9 Type 2 diabetes mellitus without complications; E03.9 Hypothyroidism, unspecified
CPT/HCPCS: 36415; 80053; 80061; 82043; 82570; 83036; 85025

== ENCOUNTER 2024-02-20 09:22 | Outpatient (AMB) | payer MEDICARE, MEDICAID, SELFPAY ==
--- NOTE | 2024-02-20 09:28 | MHC.PC.OV ---
Vital Signs 02/20/24 09:29 Height 5 ft 2 in Weight 209 lb BMI 38.2 BP 124/60 Blood Pressure Location Lt brachial Position Sitting Pulse 76 Pulse Source Pulse Oximeter Pulse Oximetry (%) 98 Oxygen Delivery Method Room Air Intake Visit Reasons: 4 month f/u Intake Note: Pt is here today for 4 months follow up visit. Allergies No Known Allergies Allergy (Verified 02/20/24 09:32) Medication List - Last Reconciled 02/20/24 by Irene Martin MD albuterol sulfate 90 mcg/actuation (Ventolin HFA) 2 puffs inhalation Q6H PRN apixaban (Eliquis) 5 mg PO BID 30 days Breo Ellipta 100-25 mcg/dose (fluticasone furoate-vilanterol) 1 inh inhalation DAILY NS dapagliflozin propanediol (Farxiga) 10 mg PO DAILY diltiazem HCl CD (Cardizem CD) 120 mg PO DAILY levothyroxine 50 mcg PO DAILY lisinopril 10 mg PO DAILY Tobacco use date assessed: 02/20/24 Fall risk assessment: No Falls in past year Last assessed Fall Risk: 02/20/24 Dental Screening Dental Screen Date: 06/28/23 HPI 4 month f/u HPI Details Pt presents for HTN, DM2, COPD, stable on meds. [facility] Medical History Paroxysmal atrial fibrillation Persistent atrial fibrillation Bacteriuria Hypothyroidism Colonoscopy refused Mammogram declined HTN (hypertension) DM type 2 (diabetes mellitus, type 2) Surgical History History of cholecystectomy Family History Father No problems noted. Mother Pre-diabetes Social History Housing: House Patient Tobacco Use Status: Never used Tobacco e-Cigarette/Vaping Use: Never Used Second Hand Smoke Exposure: No service: No Current occupational status: retired Cognitive needs: No Hearing needs: No Vision needs: Yes Questionnaire Thrive Questionnaire Date Thrive assessed: 02/20/24 I am a: Patient What is your living situation today?: I have a steady place to live Within the past 12 months, did the food you bought not last and you didn't have the money to get more?: I choose not to answer this question Within the past 12 months, did you worry whether your food would run out before you got money to buy more?: I choose not to answer this question Do you have trouble paying for medicines?: I choose not to answer this question Do you have trouble getting transportation to medical appointments?: No Do you have trouble paying your heating and electricity bill?: I choose not to answer this question Do you have trouble taking care of your child, family member or friend?: I choose not to answer this question Do you have trouble with day-to-day activities such as bathing, preparing meals, shopping, managing finances, etc.?: I choose not to answer this question Are you currently unemployed and looking for a job?: No Are you interested in more education?: I choose not to answer this question THRIVE Score: 0 MAL-7 AMB Questionnaire MAL-7 Date MAL - 7 assessed: 06/28/23 Source: Developed by Drs. Truong Nicholas, Raiza Clark, Cesar Luis and colleagues, with an educational keenan from [employer]. Review of Systems Const All systems reviewed & are unremarkable except as noted in HPI and below Reports no additional complaints Eyes Reports no additional complaints ENT Reports no additional complaints Card Reports no additional complaints Resp Reports no additional complaints GI Reports no additional complaints Reports no additional complaints Physical exam (Primary Care) Vital Signs: Last Vital Signs Pulse 76 02/20/24 09:29 BP 124/60 02/20/24 09:29 Pulse Ox 98 02/20/24 09:29 Oxygen Delivery Method Room Air 02/20/24 09:29 BMI result Body Mass Index 38.2 Tobacco/Smoking Status: Tobacco use Status Tobacco use date assessed 02/20/24 02/20/24 09:36 Patient Tobacco Use Status Never used Tobacco 02/20/24 09:36 e-Cigarette/Vaping Use Never Used 02/20/24 09:36 Thrive Assessment: Date of Thrive Assessment Date Thrive assessed 02/20/24 02/20/24 09:36 Const General: no acute distress HENMT Face and sinus: Yes normal facial exam Resp Effort & Inspection: normal respiratory effort Auscultation: clear to auscultation bilaterally Cardio Rhythm: regular rhythm Heart sounds: S1 normal heart sound present and S2 normal heart sound present GI Inspection: Yes normal to inspection Palpation (GI): Soft to palpation Percussion: Yes normal to percussion Auscultation: normal bowel sounds Coding Level of Care Code Est Pt Level 4 (82808) Complex EM visit Add On G2211 Diagnoses DM type 2 (diabetes mellitus, type 2) E11.9 HTN (hypertension) I10 Paroxysmal atrial fibrillation I48.0 Asthma J45.909 Assessment & Plan Assessment & Plan (1) DM type 2 (diabetes mellitus, type 2): Code(s): E11.9 - Type 2 diabetes mellitus without complications Category: Medical Plan: A1c is 7.3, ADA diet increase exercise weight loss discussed with the patient continue [facility] follow-up in 4 months with a fasting labs before (2) HTN (hypertension): Code(s): I10 - Essential (primary) hypertension Category: Medical Plan: Continue current medications (3) Paroxysmal atrial fibrillation: Comment: Maintaining rhythm status post cardioversion, May 2022. Feeling better with rhythm control Code(s): I48.0 - Paroxysmal atrial fibrillation Category: Medical Plan: controlled on diltiazem, anticoagulated on Eliquis had normal echo and Holter in December (4) Asthma: Comment: PFT 02/17 reversible obstruction, Code(s): J45.909 - Unspecified asthma, uncomplicated Category: Medical Plan: Continue Breo Orders: Orders Comprehensive [place]. Panel Fast 4 Months E11.9 - Type 2 diabetes mellitus without complications, I10 - Essential (primary) hypertension, I48.0 - Paroxysmal atrial fibrillation, J45.909 - Unspecified asthma, uncomplicated Lipid Panel 4 Months E11.9 - Type 2 diabetes mellitus without complications, I10 - Essential (primary) hypertension, I48.0 - Paroxysmal atrial fibrillation, J45.909 - Unspecified asthma, uncomplicated Hemoglobin A1c 4 Months E11.9 - Type 2 diabetes mellitus without complications, I10 - Essential (primary) hypertension, I48.0 - Paroxysmal atrial fibrillation, J45.909 - Unspecified asthma, uncomplicated TSH reflex Free T4 4 Months E11.9 - Type 2 diabetes mellitus without complications, I10 - Essential (primary) hypertension, I48.0 - Paroxysmal atrial fibrillation, J45.909 - Unspecified asthma, uncomplicated Complete Blood Count Auto Diff 4 Months E11.9 - Type 2 diabetes mellitus without complications, I10 - Essential (primary) hypertension, I48.0 - Paroxysmal atrial fibrillation, J45.909 - Unspecified asthma, uncomplicated Microalbumin, Random (w Creat) 4 Months E11.9 - Type 2 diabetes mellitus without complications, I10 - Essential (primary) hypertension, I48.0 - Paroxysmal atrial fibrillation, J45.909 - Unspecified asthma, uncomplicated
[2024-02-20 09:29] VITALS: BP 124/60; PULSE 76; O2SAT 98; BMI 38.2
== END 2024-02-20 09:49 | disposition home or self-care (01) ==
PROVIDERS: PCP Internal Medicine; Visit Provider Internal Medicine
DX: E11.9 Type 2 diabetes mellitus without complications (principal); I10 Essential (primary) hypertension; I48.0 Paroxysmal atrial fibrillation; J45.909 Unspecified asthma, uncomplicated

== ENCOUNTER → 2024-02-20 09:22 | Outpatient (BNVA) | payer MEDICARE, MEDICAID, SELFPAY | PROVIDERS: PCP Internal Medicine; Visit Provider Internal Medicine | DX: E11.9 Type 2 diabetes mellitus without complications (principal); I10 Essential (primary) hypertension; I48.0 Paroxysmal atrial fibrillation; J45.909 Unspecified asthma, uncomplicated | CPT/HCPCS: 99212 ==

== ENCOUNTER 2024-06-13 11:03 | Outpatient (REF) | payer MEDICARE, MEDICAID, SELFPAY ==
[2024-06-13 13:38] LABS: MANUAL DIFF FLAG NO
[2024-06-13 13:41] LABS: Basophils Percent Auto 0.3 % (0-2); Eosinophils Absolute Auto 0.1 X10*3/uL (0.0-0.4); Eosinophils Percent Auto 2.9 % (0-4); Hematocrit 42.5 % (37.0-47.0); Hemoglobin 13.8 g/dl (12.0-16.0); Imm Gran Abs Auto 0.01 X10*3/uL (0.00-0.03); Imm Gran Pct Auto 0.3 % (0.0-0.4); Lymphocytes Absolute Auto 1.1 X10*3/uL (1.2-4.9); Lymphocytes Percent Auto 31.7 % (20-40); Mean Corpuscular HGB Conc 32.5 g/dl (31.0-35.0); Mean Corpuscular Hemoglobin 27.3 pg (27.0-33.0); Mean Corpuscular Volume 84.2 fL (80.0-98.0); Mean Platelet Volume 11.2 fL (9.4-12.3); Monocytes Absolute Auto 0.3 X10*3/uL (0.1-1.2); Neutrophils Absolute Auto 1.9 x10*3/uL (2.0-8.3); Neutrophils Percent Auto 54.8 % (45-73); Platelet Count 123 X10*3/uL (160-400); Red Blood Count 5.05 X10*6/uL (4.20-5.50); Red Cell Distribution Width 13.3 % (11.0-16.0); White Blood Count 3.4 X10*3/uL (4.8-10.8)
[2024-06-13 14:04] LABS: Alanine Aminotransferase 11 U/L (0-31); Albumin Level 3.8 g/dL (3.5-5.0); Anion Gap 9 (12-20); Aspartate Amino Transferase 24 U/L (5-31); Bilirubin Total 0.5 mg/dL (0.0-1.0); Blood Urea Nitrogen 18 mg/dL (9-16); Calcium 9.4 mg/dL (8.4-10.2); Carbon Dioxide 29 mmol/L (22-29); Chloride 106 mmol/L (96-108); Cholesterol 174 mg/dL (<200); Estimated Average Glucose 160 mg/dL; Estimated Glomerular Filt Rate > 60; Glucose Fasting 121 mg/dL (60-99); HDL Cholesterol 38 mg/dL (>40); Hemoglobin A1c % 7.2 % (<6.0); LDL Cholesterol Calculated 115 mg/dL (<100); Potassium 4.4 mmol/L (3.3-5.1); Sodium 140 mmol/L (135-145); Total Hemoglobin (HGBA1C) 3611.3715 umol/L; Total Protein 7.8 g/dL (6.5-8.0); Triglycerides 105 mg/dL (<150)
[2024-06-13 14:22] LABS: Creatinine Urine 83.22 mg/dL; Microalbum/Creatinine Ratio Ur 7.2 ug/mg cr (<30)
[2024-06-13 14:29] LABS: Alkaline Phosphatase 61 U/L (39-117); TSH reflex Free T4 1.94 uIU/mL (0.32-4.0)
== END 2024-06-13 11:04 | disposition home or self-care (01) ==
LOC: HO.HMGCLDS 11:03
PROVIDERS: PCP Internal Medicine; Visit Provider Internal Medicine
DX: J45.909 Unspecified asthma, uncomplicated (principal); I48.0 Paroxysmal atrial fibrillation; I10 Essential (primary) hypertension; E11.9 Type 2 diabetes mellitus without complications
CPT/HCPCS: 36415; 80053; 80061; 82043; 82570; 83036; 84443; 85025

== ENCOUNTER 2024-06-25 09:04 | Outpatient (AMB) | payer MEDICARE, MEDICAID, SELFPAY ==
[2024-06-25 09:07] VITALS: BP 122/76; PULSE 55; RESP 18; TEMP 36.9; O2SAT 97; BMI 38.4
--- NOTE | 2024-06-25 09:07 | A.OFFPC_ITS ---
Vital Signs 06/25/24 09:07 Height 5 ft 2 in Weight 210 lb BMI 38.4 BP 122/76 Blood Pressure Location Rt brachial Position Sitting Respiration 18 Pulse 55 Pulse Source Pulse Oximeter Temp 98.4 F Temp Source Oral Pulse Oximetry (%) 97 Oxygen Delivery Method Room Air Intake Visit Reasons: 4 month f/u Intake Note: Pt is here today for 4 months follow up visit. Allergies No Known Allergies Allergy (Verified 06/25/24 09:16) Medication List - Last Reconciled 06/25/24 by Irene Martin MD albuterol sulfate 90 mcg/actuation (Ventolin HFA) 2 puffs inhalation Q6H PRN apixaban (Eliquis) 5 mg PO BID 30 days Breo Ellipta 100-25 mcg/dose (fluticasone furoate-vilanterol) 1 ea inhalation DAILY NS dapagliflozin propanediol (Farxiga) 10 mg PO DAILY diltiazem HCl CD (Cardizem CD) 120 mg PO DAILY levothyroxine 50 mcg PO DAILY lisinopril 10 mg PO DAILY Tobacco use date assessed: 06/25/24 Fall risk assessment: No Falls in past year Last assessed Fall Risk: 06/25/24 Dental Screening Dental Screen Date: 06/25/24 Did you have a dental visit in the last 12 months?: No Did you have a dental problem in the last 6 months where you did not have access to dental care?: No Was dental information given to patient?: Patient declined HPI 4 month f/u HPI Details Patient presents for the follow-up of hypertension paroxysmal AFib type 2 diabetes hypothyroidism chronic asthma stable on current medications [facility] Medical History Paroxysmal atrial fibrillation Persistent atrial fibrillation Bacteriuria Hypothyroidism Colonoscopy refused Mammogram declined HTN (hypertension) DM type 2 (diabetes mellitus, type 2) Surgical History History of cholecystectomy Family History Father No problems noted. Mother Pre-diabetes Social History Housing: House Patient Tobacco Use Status: Never used Tobacco e-Cigarette/Vaping Use: Never Used Second Hand Smoke Exposure: No service: No Current occupational status: retired Cognitive needs: No Hearing needs: No Vision needs: Yes Questionnaire PHQ-9 Over the last 2 weeks, how often have you been bothered by any of the following problems? 1. Little interest or pleasure in doing things: not at all 2. Feeling down, depressed, or hopeless: not at all 3. Trouble falling or staying asleep, or sleeping too much: not at all 4. Feeling tired or having little energy: not at all 5. Poor appetite or overeating: not at all 6. Feeling bad about yourself - or that you are a failure or have let yourself or your family down: not at all 7. Trouble concentrating on things, such as reading the newspaper or watching television: not at all 8. Moving or speaking so slowly that other people could have noticed. Or the opposite - being so fidgety or restless that you have been moving around a lot more than usual: not at all 9. Thoughts that you would be better off or of hurting yourself in some way: not at all Total score: 0 Depression Screening Interpretation: Negative Depression Screening Done: Yes 84196 - PHQ-9 Billing: Yes Source: Developed by Drs. Truong Nicholas, Raiza Clark, Cesar Luis and colleagues, with an educational keenan from [employer]. Thrive Questionnaire Date Thrive assessed: 06/25/24 I am a: Patient What is your living situation today?: I have a steady place to live Within the past 12 months, did the food you bought not last and you didn't have the money to get more?: Never true Within the past 12 months, did you worry whether your food would run out before you got money to buy more?: Never true Do you have trouble paying for medicines?: No Do you have trouble getting transportation to medical appointments?: No Do you have trouble paying your heating and electricity bill?: No Do you have trouble taking care of your child, family member or friend?: No Do you have trouble with day-to-day activities such as bathing, preparing meals, shopping, managing finances, etc.?: No Are you currently unemployed and looking for a job?: No Are you interested in more education?: No THRIVE Score: 0 AUDIT C Alcohol Use Questionnaire (AUDIT-C) 1. How often do you have a drink containing alcohol?: Never 3. How often do you have six or more drinks on one occasion?: Never Total Score: 0 MAL-7 AMB Questionnaire MAL-7 Date MAL - 7 assessed: 06/25/24 Feeling nervous, anxious, or on edge: 0 = Not at all Not being able to stop or control worryin = Not at all Worrying too much about different things: 0 = Not at all Trouble relaxin = Not at all Being so restless that it is hard to sit still: 0 = Not at all Becoming easily annoyed or irritable: 0 = Not at all Feeling afraid as if something awful might happen: 0 = Not at all Total MAL-7 score (0-4 normal; 5-9 mild; 10-14 moderate; 15-21 severe): 0 Source: Developed by Drs. Truong Nicholas, Raiza Clark, Csear Luis and colleagues, with an educational keenan from [employer]. MAL-7 Assessment Billing MAL-7 Assessment Tool: MAL-7 Assessment 06825 Review of Systems Const All systems reviewed & are unremarkable except as noted in HPI and below Eyes Reports no additional complaints ENT Reports no additional complaints Card Reports no additional complaints Resp Reports no additional complaints GI Reports no additional complaints Reports no additional complaints Physical exam (Primary Care) Vital Signs: Last Vital Signs Temp 98.4 F 06/25/24 09:07 Pulse 55 06/25/24 09:07 Resp 18 06/25/24 09:07 BP 122/76 06/25/24 09:07 Pulse Ox 97 06/25/24 09:07 Oxygen Delivery Method Room Air 06/25/24 09:07 BMI result Body Mass Index 38.4 Tobacco/Smoking Status: Tobacco use Status Tobacco use date assessed 06/25/24 06/25/24 09:20 Patient Tobacco Use Status Never used Tobacco 06/25/24 09:08 e-Cigarette/Vaping Use Never Used 06/25/24 09:08 PHQ-9: PHQ-9 Score PHQ-9: Total score 0 06/25/24 09:20 Depression Screening Interpretation: Negative Thrive Assessment: Date of Thrive Assessment Date Thrive assessed 06/25/24 06/25/24 09:08 Const General: no acute distress HENHI Head: Yes normal to inspection Face and sinus: Yes normal facial exam Throat: Yes posterior oropharynx normal Eyes General: appearance normal, both eyes and all related structures Neck Neck: Yes supple Resp Effort & Inspection: normal respiratory effort Auscultation: clear to auscultation bilaterally Cardio Rhythm: regular rhythm Heart sounds: S1 normal heart sound present and S2 normal heart sound present Extrem General: Yes no clubbing, cyanosis or edema Coding Level of Care Code Est Pt Level 4 (01993) Diagnoses Paroxysmal atrial fibrillation I48.0 DM type 2 (diabetes mellitus, type 2) E11.9 HTN (hypertension) I10 Hypothyroidism E03.9 Additional Codes MAL-7 Assessment Billing - MAL-7 Assessment Tool: MAL-7 Assessment 65168 ([id number]) PHQ-9 - 42610 - PHQ-9 Billing: Yes ([id number]) Assessment & Plan Assessment & Plan (1) Paroxysmal atrial fibrillation: Comment: Maintaining rhythm status post cardioversion, May 2022. Feeling better with rhythm control Code(s): I48.0 - Paroxysmal atrial fibrillation Category: Medical Plan: Continue Eliquis and Cardizem follow-up with the Cardiology annually (2) DM type 2 (diabetes mellitus, type 2): Code(s): E11.9 - Type 2 diabetes mellitus without complications Category: Medical Plan: A1c is 7.2, ADA diet increase exercise discussed with the patient at metformin ER 750 mg, follow-up with the 4 months with a fasting labs, patient declined taking a statin (3) HTN (hypertension): Code(s): I10 - Essential (primary) hypertension Category: Medical Plan: Continue current medications (4) Hypothyroidism: Code(s): E03.9 - Hypothyroidism, unspecified Category: Medical Plan: Continue levothyroxine Orders: Orders [facility] [place]. Panel Fast 5 Months E03.9 - Hypothyroidism, unspecified, E11.9 - Type 2 diabetes mellitus without complications, I10 - Essential (primary) hypertension, I48.0 - Paroxysmal atrial fibrillation Hemoglobin A1c 5 Months E03.9 - Hypothyroidism, unspecified, E11.9 - Type 2 diabetes mellitus without complications, I10 - Essential (primary) hypertension, I48.0 - Paroxysmal atrial fibrillation Lipid Panel 5 Months E03.9 - Hypothyroidism, unspecified, E11.9 - Type 2 diabetes mellitus without complications, I10 - Essential (primary) hypertension, I48.0 - Paroxysmal atrial fibrillation Complete Blood Count Auto Diff 5 Months E03.9 - Hypothyroidism, unspecified, E11.9 - Type 2 diabetes mellitus without complications, I10 - Essential (primary) hypertension, I48.0 - Paroxysmal atrial fibrillation Microalbumin, Random (w Creat) 5 Months E03.9 - Hypothyroidism, unspecified, E11.9 - Type 2 diabetes mellitus without complications, I10 - Essential (primary) hypertension, I48.0 - Paroxysmal atrial fibrillation TSH reflex Free T4 5 Months E03.9 - Hypothyroidism, unspecified Medications: New metformin ER 750 mg PO QPM 90 tabs 2RF fluconazole 100 mg PO DAILY 7 tabs 0RF Changed From apixaban (Eliquis) 5 mg PO BID 30 days 180 tabs 3RF To apixaban (Eliquis) 5 mg PO BID 180 tabs 3RF Refilled dapagliflozin propanediol (Farxiga) 10 mg PO DAILY 90 tabs 3RF
== END 2024-06-25 10:04 | disposition home or self-care (01) ==
LOC: HO.HMCC 09:05
PROVIDERS: PCP Internal Medicine; Visit Provider Internal Medicine
DX: I48.0 Paroxysmal atrial fibrillation (principal); E11.9 Type 2 diabetes mellitus without complications; I10 Essential (primary) hypertension; E03.9 Hypothyroidism, unspecified

== ENCOUNTER → 2024-06-25 09:04 | Outpatient (BNVA) | payer MEDICARE, MEDICAID, SELFPAY | PROVIDERS: PCP Internal Medicine; Visit Provider Internal Medicine | DX: I48.0 Paroxysmal atrial fibrillation (principal); E11.9 Type 2 diabetes mellitus without complications; I10 Essential (primary) hypertension; E03.9 Hypothyroidism, unspecified | CPT/HCPCS: 96127; 99212 ==

== ENCOUNTER 2024-12-17 10:31 | Outpatient (REF) | payer MEDICARE, MEDICAID, SELFPAY ==
--- OUTSIDE RECORDS SUMMARY | 2024-12-17 12:54 | XMS_ITS | Clinical Summary ---
Author Organization [facility] Address [address] [place] [address] Care Team Providers Care Cooling Room Attendant Name Role Phone Unavailable Primary Care Provider Unavailabl e Source Comments PLEASE NOTE, if this patient is a minor, it may be UNLAWFUL to discuss sensitive information that is contained in these records (such as FAMILY PLANNING, MENTAL HEALTH or SUBSTANCE ABUSE) with the minor patient's parent or other person without the patient's specific authorization.[facility] Medications No known medications Active Problems No known active problems Social History Tobacco Use Types Packs/Day Years Used Date Smoking Tobacco: Never Assessed Social Connections Answer Date Recorded Connectedness 0 12/09/2023 Financial Resource Strain Answer Date R ecorded Financial Resource Strain 0 2021 Stress Answer Date Recorded Stress 0 07/31/2021 Physical Activity Answer Date Recorded Physical Activity 0 07/31/2021 Food Insecurity Answer Date Recorded Food 0 12/22/2023 Transportation Needs Answer Date Record ed Transportation 0 07/31/2021 Housing Stability Answer Date Recorded Housing 0 07/31/2021 Safety and Environment Answer Date Garland rded Safety 0 07/31/2021 Utilities Answer Date Recorded Utilities 0 07/31/2021 Employment Answer Date Recorded Stress 0 12/09/2023 Comments Unknown Sex and Gender Information Value Date Recorded Sex Assigned at Not on file Legal Sex Female 10:38 AM PDT Gender Identity Not on file Sexual Orientation Not on file Last Filed Vital Signs Vital Sign Reading Time Taken Comments Blood Pressure 127/79 07/31/2021 3:37 PM EDT Pulse 98 07/31/2021 3:37 PM EDT Temperature - - Respiratory Rate - - Oxygen Saturation - - Inhaled Oxygen Concentration - - Weight - - Height - - Body Mass Index - - Plan of Treatment Not on file Insurance [employer]
[2024-12-17 12:58] LABS: MANUAL DIFF FLAG NO
[2024-12-17 13:02] LABS: Hematocrit 40.0 % (37.0-47.0); Hemoglobin 13.2 g/dl (12.0-16.0); Imm Gran Abs Auto 0.01 X10*3/uL (0.00-0.03); Imm Gran Pct Auto 0.2 % (0.0-0.4); Lymphocytes Absolute Auto 1.4 X10*3/uL (1.2-4.9); Mean Corpuscular HGB Conc 33.0 g/dl (31.0-35.0); Mean Corpuscular Hemoglobin 27.4 pg (27.0-33.0); Mean Corpuscular Volume 83.0 fL (80.0-98.0); NRBC Abs Auto 0.000 X10*3/uL (0.0-0.012); NRBC Pct Auto 0.0 /100WBC (0.0-0.2); Platelet Count 127 X10*3/uL (160-400); Red Blood Count 4.82 X10*6/uL (4.20-5.50); White Blood Count 4.6 X10*3/uL (4.8-10.8)
[2024-12-17 13:13] LABS: Hemoglobin A1C 200.1370 umol/L; Total Hemoglobin (HGBA1C) 3482.7111 umol/L
[2024-12-17 13:48] LABS: Alanine Aminotransferase 15 U/L (0-31); Albumin Level 4.2 g/dL (3.5-5.0); Alkaline Phosphatase 68 U/L (39-117); Anion Gap 11 (12-20); Aspartate Amino Transferase 21 U/L (5-31); Blood Urea Nitrogen 20 mg/dL (9-16); Calcium 9.3 mg/dL (8.4-10.2); Carbon Dioxide 26 mmol/L (22-29); Chloride 106 mmol/L (96-108); Cholesterol 180 mg/dL (<200); Estimated Glomerular Filt Rate 56; HDL Cholesterol 39 mg/dL (>40); Potassium 4.4 mmol/L (3.3-5.1); Sodium 139 mmol/L (135-145); Total Protein 7.6 g/dL (6.5-8.0); Triglycerides 108 mg/dL (<150)
[2024-12-17 13:59] LABS: Microalbum/Creatinine Ratio Ur 10.4 ug/mg cr (<30)
== END 2024-12-17 10:32 | disposition home or self-care (01) ==
LOC: HO.HMGCLDS 10:31
PROVIDERS: PCP Internal Medicine; Visit Provider Internal Medicine
DX: I10 Essential (primary) hypertension (principal); E11.9 Type 2 diabetes mellitus without complications; I48.0 Paroxysmal atrial fibrillation; E03.9 Hypothyroidism, unspecified
CPT/HCPCS: 36415; 80053; 80061; 82043; 82570; 83036; 84443; 85025

== ENCOUNTER 2024-12-25 09:43 | Outpatient (AMB) | payer MEDICARE, MEDICAID, SELFPAY ==
--- NOTE | 2024-12-25 10:07 | A.OFFVIS_ITS ---
Intake Vital Signs 12/25/24 10:33 Height 5 ft 2 in Weight 215 lb BMI 39.3 BP 136/60 Blood Pressure Location Lt brachial Position Sitting Respiration 19 Pulse 82 Pulse Source Pulse Oximeter Temp 97.7 F Temp Source Oral Pulse Oximetry (%) 96 Oxygen Delivery Method Room Air Intake Visit Reasons: AWV Intake Note: Pt is here today for AWV. Allergies No Known Allergies Allergy (Verified 12/25/24 10:35) Medication List - Last Reconciled 12/25/24 by Irene Martin MD albuterol sulfate 90 mcg/actuation (Ventolin HFA) 2 puffs inhalation Q6H PRN apixaban (Eliquis) 5 mg PO BID Breo Ellipta 100-25 mcg/dose (fluticasone furoate-vilanterol) 1 ea inhalation DAILY NS dapagliflozin propanediol (Farxiga) 10 mg PO DAILY diltiazem HCl CD (Cardizem CD) 120 mg PO DAILY fluconazole 100 mg PO DAILY levothyroxine 50 mcg PO DAILY lisinopril 10 mg PO DAILY metformin ER 750 mg PO QPM HPI AWV HPI Details Initiated the conversation about Advanced Directives. Advanced Directives help? patients prepare for current and future decisions about their medical treatment? and place of care. Discussed with patient that it is a process where a patients? current condition and prognosis are reviewed, their wishes for information? regarding their illness are elicited, and likely medical dilemmas are presented? and options discussed. The form can be amended as needed, reviewed yearly and? make changes as needed IPPE/AWV ? year old presents? for her ? Annual? Wellness Visit, initial visit.? Medical / Social History Reviewed? Past Medical History ?Yes? . ? [place]? of Care / Care Team list updated ?Yes . ? Surgical/Hospitalization? History ?Yes . ? Current Medications? (including OTC and supplements) ?Yes . ? Family History ?Yes? . ? Tobacco? Control form ?Yes . ? AUDIT-C (Alcohol use) form? ?Yes . ? Illicit drug use in Social? History ?Yes . ? Current diagnosis of? depression? ?No ? Appropriate PHQ2/PHQ9? completed ?Yes . ? Data entered by ?Medical? Local Operator and reviewed by provider ? Fall Risk ? Fall? History? Have you had any falls with? injury in the past year? ?No . ? Have you had two or more? falls in the past year? ?No . ? Fall Risk Assessment: ?No? falls in the past year . ? HRA filled out by? the patient, reviewed by Provider and scanned. ? IPPE/AWV ? Balance? [place]? ?Yes . ? Tandem? walk ?Yes . ? Walk and? Turn ?Yes . ? Rise from? sit to stand ?Yes . ?Vision? Corrective? lens ?Yes ? Vision? screen ? Up-to-date, has an appointment [] for vision? screening and glaucoma screening ?Hearing? Whisper? test ?pass .? Initiated the conversation about Advanced Directives. Advanced Directives help? patients prepare for current and future decisions about their medical treatment? and place of care. Discussed with patient that it is a process where a patients? current condition and prognosis are reviewed, their wishes for information? regarding their illness are elicited, and likely medical dilemmas are presented? and options discussed. The form can be amended as needed, reviewed yearly and? make changes as needed Written? Plan?Completed. See Patient? Documents. [facility] Medical History (Updated 12/25/24 @ 10:58 by Irene Martin MD) Asthma Paroxysmal atrial fibrillation Persistent atrial fibrillation Bacteriuria Hypothyroidism Colonoscopy refused Mammogram declined HTN (hypertension) DM type 2 (diabetes mellitus, type 2) Surgical History History of cholecystectomy Family History Father No problems noted. Mother Pre-diabetes Social History Housing: House Patient Tobacco Use Status: Never used Tobacco e-Cigarette/Vaping Use: Never Used Second Hand Smoke Exposure: No service: No Current occupational status: retired Cognitive needs: No Hearing needs: No Vision needs: Yes Questionnaire Medicare Wellness Checkup [age] What gender do you identify with?: female During the past 4 weeks, how much have you been bothered by emotional problems such as feeling anxious, depressed, irritable, sad or downhearted, and blue?: not at all During the past 4 weeks, has your physical & emotional health limited your social activities with family, friends, neighbors, or groups?: not at all During the past 4 weeks, how much bodily pain have you generally had?: no pain During the past 4 weeks, was someone available to help you if you needed & wanted help?: yes, as much as I wanted During the past 4 weeks, what was the hardest physical activity you could do for at least 2 minutes?: moderate Can you get to places out of walking distance without help? (For eg., can you travel alone on buses, taxis or drive your car?): No Can you go shopping for groceries or clothes without someone's help?: Yes Can you prepare your own meals?: Yes Can you do your housework without help?: Yes Because of any health problems, do you need the help of another person with your personal care needs such as eating, bathing, dressing or getting around the house?: No Can you handle your own money without help?: Yes During the past 4 weeks, how would you rate your health in general?: very good During the past 4 weeks how have things been going for you?: very well; could hardly better Are you having difficulties driving your car?: not applicable, I don't use a car Do you always fasten your seat belt when you are in a car?: yes, usually During past 4 weeks, have you been bothered by the following: never: Falling or dizzy when standing up, Sexual problems?, Trouble eating well?, Teeth or denture problems?, Problems using the telephone? and Tiredness or fatigue? Have you fallen 2 or more times in the past year?: No Are you afraid of falling?: No Are you a smoker?: no During the past 4 weeks, how many drinks of wine, beer, or other alcoholic beverages did you have?: no alcohol at all Do you exercise for about 20 minutes 3 or more times a week?: no, I usually do not exercise this much Have you been given information to help with the following?: no: Hazards in your house that might hurt you? and no: Keeping track of your medications? How often do you have trouble taking medicines the way you have been told to take them?: I always take medicine as prescribed How confident are you that you can control & manage most of your health problems?: very confident What is your race?: White Mini Mental State Exam (MMSE) Orientation What is the (year) (season) (date) (day) (month)?: year, season, date, day and month Where are we (state) (county) (town or city) (hospital) (floor)?: state, county, town or city, hospital/clinic and floor Registration Name of 3 unrelated objects clearly and slowly, then ask patient to repeat all 3 of them. (1st repeat determines score. Make sure they can repeat all three): object 1, object 2 and object 3 Attention & Calculation (CHOOSE ONE) Spell WORLD backwards (DLROW): 5 letters Recall Ask patient to repeat the 3 items from question #3.: object 1, object 2 and object 3 Language Show patient a wristwatch & ask what it is. Repeat for pencil.: watch and pencil Ask the patient to repeat the phrase 'No ifs, ands, or buts' after you.: correct Ask the patient to 'take a piece of paper with their right hand' 'fold paper in half' 'place paper on floor': take paper in right hand, fold paper in half and place paper on floor Print the sentence 'CLOSE YOUR EYES' on a piece. If patient actually closes eyes then score.: followed written direction Give patient a blank piece of paper & ask to write a sentence. Score if it contains a noun & verb.: sentence contains subject and verb Score Score: 29 PHQ-9 Over the last 2 weeks, how often have you been bothered by any of the following problems? 1. Little interest or pleasure in doing things: not at all 2. Feeling down, depressed, or hopeless: not at all 3. Trouble falling or staying asleep, or sleeping too much: not at all 4. Feeling tired or having little energy: not at all 5. Poor appetite or overeating: not at all 6. Feeling bad about yourself - or that you are a failure or have let yourself or your family down: not at all 7. Trouble concentrating on things, such as reading the newspaper or watching television: not at all 8. Moving or speaking so slowly that other people could have noticed. Or the opposite - being so fidgety or restless that you have been moving around a lot more than usual: not at all 9. Thoughts that you would be better off or of hurting yourself in some way: not at all Total score: 0 Depression Screening Interpretation: Negative Depression Screening Done: Yes Source: Developed by Drs. Truong Nicholas, Raiza Clark, Cesar Luis and colleagues, with an educational keenan from [employer]. Review of Systems Const All systems reviewed & are unremarkable except as noted in HPI and below Eyes Reports no additional complaints ENT Reports no additional complaints Card Reports no additional complaints Resp Reports no additional complaints GI Reports no additional complaints Reports no additional complaints Physical Exam Vital Signs: Last Vital Signs Temp 97.7 F 12/25/24 10:33 Pulse 82 12/25/24 10:33 Resp 19 12/25/24 10:33 BP 136/60 12/25/24 10:33 Pulse Ox 96 12/25/24 10:33 Oxygen Delivery Method Room Air 12/25/24 10:33 BMI result Body Mass Index 39.3 Const General: no acute distress HEENT Head: Yes normal to inspection Neck Neck: Yes no lymphadenopathy and Yes supple Resp Effort & Inspection: normal respiratory effort Auscultation: clear to auscultation bilaterally Cardio Rhythm: regular rhythm Heart sounds: S1 normal heart sound present and S2 normal heart sound present GI Inspection: Yes normal to inspection Palpation (GI): Soft to palpation Percussion: Yes normal to percussion Auscultation: normal bowel sounds Extrem Other: Diabetic foot exam: skin is intact monofilament and vibration sensation intact bilaterally General: Yes no clubbing, cyanosis or edema Assessment & Plan Assessment & Plan (1) Paroxysmal atrial fibrillation: Comment: Maintaining rhythm status post cardioversion, May 2022. Feeling better with rhythm control Code(s): I48.0 - Paroxysmal atrial fibrillation Plan: Rhythm controlled anticoagulated on Eliquis (2) DM type 2 (diabetes mellitus, type 2): Code(s): E11.9 - Type 2 diabetes mellitus without complications Plan: A1c is 7.4 ADA diet increase physical activity weight loss discussed with the patient. she was advised to increase metformin dose but patient declined. She will continue Farxiga and 750 mg of metformin. She will follow-up in 6 months with a fasting labs before (3) Asthma: Comment: PFT 02/17 reversible obstruction, patient refused vaccinations including Pneumovax and influenza 11/2024 Code(s): J45.909 - Unspecified asthma, uncomplicated Plan: Controlled on Breo Ellipta Orders: Orders Complete Blood Count Auto Diff 6 Months E11.9 - Type 2 diabetes mellitus without complications, I48.0 - Paroxysmal atrial fibrillation, J45.909 - Unspecified asthma, uncomplicated Lipid Panel 6 Months E11.9 - Type 2 diabetes mellitus without complications, I48.0 - Paroxysmal atrial fibrillation, J45.909 - Unspecified asthma, uncomplicated Comprehensive [place]. Panel Fast 6 Months E11.9 - Type 2 diabetes mellitus without complications, I48.0 - Paroxysmal atrial fibrillation, J45.909 - Unspecified asthma, uncomplicated Hemoglobin A1c 6 Months E11.9 - Type 2 diabetes mellitus without complications, I48.0 - Paroxysmal atrial fibrillation, J45.909 - Unspecified asthma, uncomplicated Microalbumin, Random (w Creat) 6 Months E11.9 - Type 2 diabetes mellitus without complications, I48.0 - Paroxysmal atrial fibrillation, J45.909 - Unspecified asthma, uncomplicated Quality Reporting (2019) Depression/Bipolar (159/160/161/177) PHQ-9: Total score: 0 Coding Level of Care Code Medicare Subsequent (G0439) Diagnoses Paroxysmal atrial fibrillation I48.0 DM type 2 (diabetes mellitus, type 2) E11.9 Asthma J45.909 CPT Codes Advance Care Planning - Advance Care Planning discussion: On file, no changes ([id number]) Advance Care Planning - Time spent: 1-15 minutes, on File ([id number]) Advance Care Planning Advance Care Planning discussion: On file, no changes Forms completed: Health Care Proxy Time spent: 1-15 minutes, on File
[2024-12-25 10:33] VITALS: BP 136/60; PULSE 82; RESP 19; TEMP 36.5; O2SAT 96; BMI 39.3
--- OUTSIDE RECORDS SUMMARY | 2024-12-25 10:35 | XMS_ITS | Clinical Summary ---
Author Organization [facility] Address [address] [place] [address] Care Team Providers Care Science Writer Name Role Phone Unavailable Primary Care Provider [...]
== END 2024-12-25 10:58 | disposition home or self-care (01) ==
LOC: HO.HMCC 09:44
PROVIDERS: PCP Internal Medicine; Visit Provider Internal Medicine
DX: Z00.00 Encounter for general adult medical examination without abnormal findings (principal); I48.0 Paroxysmal atrial fibrillation; E11.9 Type 2 diabetes mellitus without complications; J45.909 Unspecified asthma, uncomplicated

== ENCOUNTER 2025-02-07 15:13 | Outpatient (AMB) | payer MEDICARE, MEDICAID, SELFPAY ==
[2025-02-07 15:49] VITALS: BP 130/64; PULSE 66; BMI 38.9
--- NOTE | 2025-02-07 15:49 | A.OFFVIS_ITS ---
Vital Signs 02/07/25 15:49 Height 5 ft 2 in Weight 212 lb 8.41 oz BMI 38.9 BP 130/64 Blood Pressure Location Lt brachial Pulse 66 Pulse Source Monitor Intake Visit Reasons: 1 yr fu (NS rs) Financial Administration Officer Required: Yes Financial Administration Officer Services: Financial Administration Officer Offered & Declined Accompanied by: Spouse Allergies No Known Allergies Allergy (Verified 02/07/25 15:52) Medication List - Last Reconciled 02/07/25 by Heidi Maurer NP-C albuterol sulfate 90 mcg/actuation (Ventolin HFA) 2 puffs inhalation Q6H PRN apixaban (Eliquis) 5 mg PO BID dapagliflozin propanediol (Farxiga) 10 mg PO DAILY diltiazem HCl CD (Cardizem CD) 120 mg PO DAILY levothyroxine 50 mcg PO DAILY lisinopril 10 mg PO DAILY metformin ER 750 mg PO QPM HPI HPI 1 yr fu (NS rs): Details: Anayeli is a 79-year-old female with past medical history of hypertension, diabetes, obesity, paroxysmal atrial fibrillation that is treated with rhythm control who presents for follow-up. Today she reports she is feeling well with no concerning symptoms. She denies any heart palpitations, chest discomfort, shortness of breath, leg edema. She reports good activity tolerance. She walks her dog and does housework and cooking without difficulties. No bleeding issues reported. Compliant with meds. Son-in-law is present and assisting with translation at their request. [facility] Medical History Asthma Paroxysmal atrial fibrillation Persistent atrial fibrillation Bacteriuria Hypothyroidism Colonoscopy refused Mammogram declined HTN (hypertension) DM type 2 (diabetes mellitus, type 2) Surgical History History of cholecystectomy Family History Father No problems noted. Mother Pre-diabetes Social History Housing: House Patient Tobacco Use Status: Never used Tobacco e-Cigarette/Vaping Use: Never Used Second Hand Smoke Exposure: No service: No Current occupational status: retired Cognitive needs: No Hearing needs: No Vision needs: Yes Review of Systems Const All systems reviewed & are unremarkable except as noted in HPI and below Denies daytime sleepiness, Denies difficulty sleeping, Denies snoring, Denies stops breathing during sleep and Denies weakness Card Denies chest pain, Denies rapid heart rate, Denies irregular heart rhythm, Denies claudication, Denies leg edema, Denies lightheadedness, Denies palpitations, Denies dyspnea, Denies dyspnea on exertion, Denies orthopnea, Denies paroxysmal nocturnal dyspnea and Denies slow heart rate Resp Denies cough, Denies dyspnea, Denies dyspnea on exertion and Denies snoring GI Reports no additional complaints, Denies hematochezia, Denies change in stool character and Denies dyspepsia Musc Denies abnormal gait, Denies muscle weakness and Denies numbness Neuro Denies abnormal gait, Denies numbness and Denies weakness Endo Denies palpitations Physical Exam Vital Signs: Last Vital Signs Pulse 66 02/07/25 15:49 BP 130/64 02/07/25 15:49 BMI result Body Mass Index 38.9 Const General: cooperative, healthy appearing, comfortable and no acute distress Orientation/consciousness: patient oriented x3 Neck Neck: Yes normal visual inspection Resp Effort & Inspection: normal respiratory effort Auscultation: clear to auscultation bilaterally, no rales, no rhonchi and no wheezes Cardio Rate: regular rate Rhythm: regular rhythm Heart sounds: S1 normal heart sound present, S2 normal heart sound present, no gallops, no murmurs and no rubs Neuro General: patient oriented x3 Extrem General: Yes normal to inspection, No no pedal edema and No calf tenderness Psych Appearance: grossly normal Mental Status: mental status grossly normal Speech and movement: Normal speech and movement present Office Procedures EKG Details: Today, read by me, normal sinus rhythm, left axis deviation, low-voltage QRS [id number], Complete Assessment & Plan Assessment & Plan (1) Paroxysmal atrial fibrillation: Comment: Maintaining rhythm status post cardioversion, May 2022. Feeling better with rhythm control Code(s): I48.0 - Paroxysmal atrial fibrillation Category: Medical Plan: History of paroxysmal atrial fibrillation, treated with rhythm control. On diltiazem CD 120 mg daily for heart rate control. On Eliquis 5 mg b.i.d. for anticoagulation. Labs 12/17/2024 shows hemoglobin 13.2, creatinine 0.96. Last echo 01/23/2024 showing EF 67%, no valve abnormalities. EKG today normal sinus rhythm, rate 66. Continue current treatment plan (2) HTN (hypertension): Code(s): I10 - Essential (primary) hypertension Category: Medical Plan: Blood pressure goal less than 130/80. At goal today. Continue lisinopril and diltiazem. Plan I discussed with the patient the importance of continuing her current medications, including diltiazem, Eliquis to manage her atrial fibrillation and lisinopril for hypertension. We reviewed her last echocardiogram results, which were normal, and her EKG showing normal sinus rhythm. I advised her to maintain her current lifestyle and to return for follow-up in one year unless her symptoms change. Patient Instructions: - Continue taking diltiazem, Eliquis, and lisinopril as prescribed. - Maintain current lifestyle, including regular physical activity. - Schedule a follow-up appointment in one year or sooner if symptoms change. Patient was informed and verbally consented to the use of an ambient scribe for clinic note documentation during this visit. Visit time spent on chart review, interview, assessment, orders, documentation. Coding Level of Care Code Est Pt Level 3 (48673) Complex EM visit Add On G2211 Diagnoses Paroxysmal atrial fibrillation I48.0 HTN (hypertension) I10 CPT Codes EKG - CPT: [id number], Complete ([id number]) Time Spent (min) 24
== END 2025-02-07 16:21 | disposition home or self-care (01) ==
LOC: HO.HCS 15:14
PROVIDERS: PCP Internal Medicine; Visit Provider Nurse Practitioner Family
DX: I48.0 Paroxysmal atrial fibrillation (principal); I10 Essential (primary) hypertension
CPT/HCPCS: 93010; 99213; G2211

== ENCOUNTER → 2025-02-07 15:13 | Outpatient (BNVA) | payer MEDICARE, MEDICAID, SELFPAY | PROVIDERS: PCP Internal Medicine; Visit Provider Nurse Practitioner Family | DX: I48.0 Paroxysmal atrial fibrillation (principal); I10 Essential (primary) hypertension; Z79.01 Long term (current) use of anticoagulants | CPT/HCPCS: 93005; 99212 ==